=== PATIENT | male | born 1950 | race Caucasian/White ===

== ENCOUNTER 2018-02-09 20:57 | Inpatient (IN) | payer MEDICAID, SELFPAY ==
[2018-02-09 22:13] VITALS: BMI 27.1
[2018-02-09] MEDS ORDERED: Ondansetron HCl/PF 4 MG/2 ML Vial IVP PRN (22:16)
[2018-02-09 22:46] LABS: #Basophils 0.1 thou/uL (0.0-0.2); #Eosinphils 0.1 thou/uL (0.0-0.7); #Lymphocytes 2.1 thou/uL (1.20-3.40); #Monocytes 0.5 thou/uL (0.11-0.59); #Neutrophils 8.3 thou/uL (1.40-6.50); %Basophils 0.6 % (0.0-1.0); %Eosinophils 0.8 % (0.0-10.0); %Lymphocytes 18.9 % (21.0-51.0); %Monocytes 4.5 % (0.0-10.0); %Neutrophils 75.3 % (42.0-75.0); Hemoglobin 11.6 g/dL (14.0-18.0); Mean Corpuscular HGB CONC 33.6 g/dL (32.0-36.0); Mean Corpuscular Hemoglobin 34.8 pg (27.0-31.0); Mean Platelet Volume 7.2 fL (7.4-10.4); Platelet Count 180 thou/uL (130-400); RBC Distribution Width 13.3 % (11.5-14.5); Red Blood Cell (RBC) Count 3.34 mill/uL (4.70-6.10)
[2018-02-09 23:05] LABS: Anion Gap 13 mmol/L (10-20); BUN (Urea Nitrogen) 23 mg/dL (8.4-25.7); Calc. Creatinine Clearance 52 mL/min (70-130); Calcium 8.5 mg/dL (7.8-10.44); Carbon Dioxide 24 mmol/L (23-31); Chloride 103 mmol/L (98-107); Estimated GFR-MDRD 51; Glucose 100 mg/dL (80-115); Potassium 3.7 mmol/L (3.5-5.1); Sodium 136 mmol/L (136-145)
--- NOTE | 2018-02-10 00:13 | HP ---
TIME OF EVALUATION: 10:30 p.m. CODE STATUS: FULL code. PRIMARY CARE PHYSICIAN: The patient has recently moved to the area. The patient has been transferred from [facility] due to the need for evaluation by a urologist. The patient has Down syndrome, so information has been gathered from records, nursing staff, and transfer papers. CHIEF COMPLAINT: The patient had urinary retention. HISTORY OF PRESENT ILLNESS: This is a 67-year-old patient with past medical history of Down syndrome, recently moved to [place], after his brother who was taking care of him out of the state had a "massive heart attack" and has not been able to take care of him anymore. The patient had an episode of syncope 2 days ago, was taken to the ER in his local community, was examined. He was doing better, was sent back home. They did a CAT scan during that evaluation and found that the patient has urinary retention. He was admitted to [facility], where they tried to place a Reyes catheter to remove the obstruction, but it was not possible. For that reason, they have requested transfer to our hospital for the patient to have evaluation by Urology. The symptoms that he presented with is lower abdominal area severe pain. He is unable to exactly communicate his symptoms, but he continues to point to the lower abdomen, it is mildly distended. We are awaiting for the CT to be sent to us. There has been no fever, no chills, or any evidence of infection as of now. REVIEW OF SYSTEMS: Unable to obtain since the patient has mental retardation. ALLERGIES: No known drug allergies. HOME MEDICATIONS: Seroquel 25 mg at bedtime, omeprazole 20 mg daily, aspirin 81 mg daily, vitamin B12 1000 mcg one tablet daily, iron 27 one tablet daily, calcium 600 +D3 one tablet daily. SOCIAL HISTORY: Never a smoker. No alcohol, no drug use. Single, lives with family members. FAMILY HISTORY: Father has a history of arthritis. Mother has a history of cancer, history of seasonal allergies, arthritis, depression, Down syndrome. PAST SURGICAL HISTORY: None reported. PHYSICAL EXAMINATION: VITAL SIGNS: Reviewed. They are within normal limits. GENERAL APPEARANCE: The patient is alert. He is able to interact with simple questions. HEENT: Moist oral mucosa. RESPIRATORY: Bilateral air entry. No rales, no wheezing. Symmetric expansion. CARDIOVASCULAR: Normal rate and rhythm. No murmurs, no gallop, no edema. ABDOMEN: Soft. Normal bowel sounds. MUSCULOSKELETAL: Baseline range of motion and strength. No tenderness. SKIN: Warm and intact. No pallor, no rash, no redness. NEUROLOGIC: Baseline sensorium. No evidence of any new focal weakness. Baseline speech. Cranial nerves, sensory intact. PSYCHIATRIC: The patient is in good mood. LABORATORY DATA: Labs done prior to transfer: Sodium 142, potassium 4.4, chloride 107, CO2 of 24, anion gap 11, glucose 119, BUN 22, creatinine 1.2. BUN and creatinine 18/3. Calcium 9.6, total protein 6.5, albumin 3.4, total bilirubin 0.2, AST 25, ALT 17, alkaline phosphatase 111, GFR 64. White count 10.1, RBC 3.98, hemoglobin 13.2, hematocrit 39.9, platelets 232. CT head was done. The patient was found to have some ventricular dilation disproportionate to the level of atrophy seen and suspicious for normal pressure hydrocephalus. Age related and chronic involutional changes are seen. CT abdomen and pelvis without contrast was done. The patient has mild pericardial effusion. The urinary bladder is significantly filled, distended with mild thickening of the wall of the urinary bladder suspicious for cystitis. There is severe left-sided hydronephrosis without hydroureter. There is severe cortical thinning of the left kidney. These findings are suspicious for primary ureteropelvic junction obstruction of the left side. There is also presence of multiple peripelvic cysts in the right kidney. There is no right-sided hydroureteronephrosis. Fecal impaction in the rectosigmoid colon. Chest x-ray was done. There is no acute pleural parenchymal process seen in the imaged lung camargo. ASSESSMENT AND PLAN: 1. Bladder distention with urinary retention, likely secondary to enlarged prostate. Reyes has been attempted twice previously in the hospital, that has been unsuccessful. The patient has been transferred for urology evaluation of current problem. We will consult Urology. will follow recommendations. 2. Severe hydronephrosis on the left kidney without hydroureteronephrosis, likely due to obstruction of the ureteropelvic junction. Unclear if this is an acute vs likely a chronic problem since there is also thinning of the cortex of the left kidney, discussed with urology Dr Marisabel rosen paul see pt i nam , no further intervention to be done at this point. 3. Possible cystitis as seen on the CAT scan, likely related to urinary retention. We will do UA. We will treat accordingly. 4. Down syndrome with mental retardation. The patient will need supportive care as inpatient. 5. There was a report of syncope in previous admissions and this problem had resolved in the past. We will do echo and carotid Doppler to rule out any cardiac/carotid etiologies. . 6. Possible normal pressure hydrocephalus as seen on the CT head. Might need Neurology evaluation in a.m. for further management. 7. Hyperglycemia with a blood sugar of 119. This is mild. No need for any acute treatment. We will monitor. We will treat accordingly. 8. Deep venous thrombosis prophylaxis. MTDD
[2018-02-10] MEDS ORDERED: Tamsulosin HCl 0.4 MG CAP PO SCH (01:15)
[2018-02-10 04:55] LABS: Bilirubin Negative (Negative); Blood, Urine Negative (Negative); Clarity CLEAR (Clear); Glucose, Urine (Dipstick) Negative (Negative); Leukocyte Negative (Negative); Nitrite Negative (Negative); Protein, Urine (Dipstick) Negative (Neg-Trace); Specific Gravity, Urine 1.012 (1.002-1.036); Urobilinogen 0.2 mg/dL (0.2-1.0)
--- NOTE | 2018-02-10 07:52 | CON ---
DATE OF CONSULTATION: 02/10/2018 HISTORY OF PRESENT ILLNESS: This is a 67-year-old white male who has Down syndrome who was transferr ed here last night from [facility] because they could not place a Reyes catheter. He h ad come into that emergency department because of what sounds like a syncopal episode. They did eval uation there with blood work that looked pretty normal. A CAT scan of the head that showed some atro phy and some evidence of hydrocephalus, I do not know if this has been evaluated. He had an abdomina l pelvic CT scan, I read the report of that. It described a distended urinary bladder and that was t he reason they tried to place a Reyes catheter. It also described constipation/fecal impaction. I d o not think anything yet has been done to remedy that and it also showed what probably is a left UPJ obstruction ureter that was not dilated, renal collecting system that was significantly dilated with a severe left renal cortical atrophy. He was transferred here. The Hospitalist called me at home jacob storm 11:30 or 12 and at that point by what he describes to me, it did not sound like that we were goi ng to deal with a left UPJ obstruction as he was not septic and this would be a congenital problem th at at this point in time would not be worth fixing short of him becoming septic. I also recommended they try to place a Reyes catheter, if they were not able to, to call me. I never got called and cam e in to see him this morning. They have placed a 10-Urdu Reyes catheter. I talked with the nurses that were involved in helping to do it. They said the main problem was just that the urethral meatu s and phallus were small and they had to use a much smaller catheter, in addition that the patient, b ecause of his mental retardation from his Down syndrome was not cooperative. He has drained a very g ood amount of urine and a very clear urine. ALLERGIES: He has no known drug allergies. ROUTINE MEDICATIONS: Seroquel, omeprazole, aspirin, vitamins, iron and calcium. Apparently prior to moving to [facility] he had been taking 2 medicines to help him with urination as he does have a histor y of an enlarged prostate, but he is not on this currently. I think he was living with a family [facility] who suffered an illness and now he has come to [facility] and I guess he is being cared for by other family members. SOCIAL HISTORY: He does not smoke, does not drink. PAST SURGICAL HISTORY: There is nothing on his record about surgical history, although he does have a left-sided paramedian incision, I do not know if this is from a prior procedure or just from an inj ury. LABORATORY: He had blood work redone here. His white count is 11. His hemoglobin was 11.6. His cr eatinine is 1.39 and his urinalysis which I am assuming was obtained from the Reyes catheter is compl etely normal. VITAL SIGNS: His vital signs here, 99.0, normal O2 sat, pulse and blood pressure are normal. He is currently on his regular and routine medications and he has had Flomax started. PHYSICAL EXAMINATION: ABDOMEN: His flanks are nontender. His abdomen is slightly obese, but nontender, it is soft. There is no left-sided or left upper quadrant flank tenderness. Bladder does not feel distended. He has the old incision as above. : He is not circumcised. Catheter is in what appears to be good position, draining well. The jose ticles are descended. There is no mass or tenderness, they are somewhat atrophic and small and soft. RECTAL: Rectal exam reveals normal tone. I do not feel any obvious rectal lesion. Prostate does no t feel to be significantly enlarged or nodular. IMPRESSION: 1. Urinary retention of uncertain cause. Apparently a caregiver told the nursing staff that he does have a history of an enlarged prostate and he is on medicines for it. It looks like the Flomax has been restarted. I think that is a great idea and will also start him on some Proscar as he apparentl y was on 2 drugs for this. It is also possible that his difficulty with urination has come around re lated to fecal impaction/constipation and I think that it would be reasonable to try to get his bowel s working better as this can certainly cause problems in men and women in terms of causing incomplete emptying and retention. 2. Constipation/fecal impaction. 3. 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 He is not complaining of left flank pain or tenderness on ex am and where the kidney according to the report has significant cortical atrophy. I do think this ar ea should even be evaluated. We would assume that this is all UPJ obstruction, chronic long-term and that with a normal creatinine that is obvious his kidney is working adequately for him. So for the time being, we will get him back on his routine medications for lower urinary tract symptoms and then get working on his bowels to try to relieve any problems he has with constipation and hopefully in n ext couple of days, a voiding trial.
[2018-02-10] MEDS: Cyanocobalamin (Vitamin B-12) 1,000 MCG TAB PO SCH (08:55)
[2018-02-10] MEDS: Heparin 5,000 UNITS/ML VIAL SC SCH ×2 (08:56→22:06)
[2018-02-10] MEDS: Aspirin 81 mg Enteric Coated Tablet PO SCH (08:56)
[2018-02-10] MEDS: Loratadine 10 MG TAB PO SCH (08:56)
[2018-02-10] MEDS: Multivit, Therapeutic 1 TAB PO SCH (08:57)
[2018-02-10] MEDS: Calcium Carbonate + Vit D 1 TAB PO SCH (08:57)
--- NOTE | 2018-02-10 10:50 | ULT ---
BILATERAL CAROTID DUPLEX ULTRASOUND: DATE: 02/10/18 HISTORY: Syncope. TECHNIQUE: Vital scale ultrasound with color flow and spectral Doppler imaging of the extracranial carotid artery systems performed. FINDINGS: There is plaque formation on either side. The peak systolic velocity in the right ICA measures 75 cm/second with an end-diastolic velocity of 2 6 cm/second and a systolic ratio of 0.49. The peak systolic velocity in the left ICA measures 81 cm/second with an end-diastolic velocity of 22 cm/second and a systolic ratio of 0.59. Flow in both vertebral arteries remains antegrade. IMPRESSION: No evidence of hemodynamically significant stenosis in either ICA. POS: [facility]
--- NOTE | 2018-02-10 13:29 | PRG ---
DATE OF SERVICE: 02/10/2018 SUBJECTIVE: The patient seen and examined at the bedside. He is somewhat agitated after Dr. Petit gave him a rectal examination this morning. He is moaning. OBJECTIVE: VITAL SIGNS: Blood pressure is 102/70, pulse is 60, temperature is 98.2, respiratory rate is 16, and pulse oximetry is 95% on room air. HEENT: Head is atraumatic, normocephalic. Sclerae nonicteric. Oral mucosa is moist. NECK: Supple. LUNGS: Clear. HEART: S1, S2 normal, no S3, no S4, no any murmur. ABDOMEN: Soft, nontender in the epigastric area. There is some tenderness to the suprapubic area. No guarding, no masses. EXTREMITIES: No clubbing, cyanosis or edema. NEUROLOGIC: He is trying to follow my commands. He is able to move his all 4 extremities. He has a Reyes catheter in. LABORATORY DATA: Urinalysis which was within normal limits. IMPRESSION: 1. Urinary tract obstruction possibly secondary to his constipation and according to the CAT scan, h e is impacted. 2. Severe hydronephrosis on the left kidney without hydroureteronephrosis, which is felt to be chron ic. 3. Possible normal pressure hydrocephalus on the CT. We will obtain Neurology consultation to asses s that. 4. Possible cystitis which is per CT scan findings, but not confirm with urinalysis which is very cl ear. PLAN: Continue his Reyes catheter in. We will also start to move his bowels and I am going to start him on lactulose 20 grams 4 times a day. We will also continue his aspirin and he was placed on Jarrod max to help urinary tract function.
[2018-02-10] MEDS: traMADol HCl 50 MG TAB PO PRN (14:04)
[2018-02-10] MEDS: Tamsulosin HCl 0.4 MG CAP PO SCH (22:06)
[2018-02-10] MEDS: Finasteride 5 MG TAB PO SCH (22:06)
[2018-02-10] MEDS: Nitrofurantoin Monohyd/M-Cryst 100 MG CAP PO SCH (22:06)
[2018-02-11] MEDS ORDERED: Fleet Enema 133 ML BOT FS PRN (04:51)
[2018-02-11] MEDS ORDERED: Magnesium Citrate 300 ML BOT PO SCH (08:45)
[2018-02-11] MEDS ORDERED: Ziprasidone 20 MG VIAL IM PRN (08:49)
--- NOTE | 2018-02-11 08:57 | CON ---
DATE OF CONSULTATION: 02/10/2018 REFERRING PHYSICIAN: REASON FOR CONSULTATION: Urinary retention, possible NPH. HISTORY OF PRESENT ILLNESS: Mr. Melara is a 67-year-old male with history of Down syndrome who is being consulted for evaluation of urinary retention and possible NPH. History is very limite d as patient unable to provide. There is patient's brother being present in the room, who said that the brother normally takes care of him, is unavailable as he had a recent heart attack and he has no detailed history of his symptoms. Apparently, the patient had gone to outside emergency room for con tinued difficulty with urinary retention. He had syncopal episode for which he was taken to outside hospital. During the ER visit, he had a CT scan of the head done which apparently had shown enlarged ventricles and there was a concern for NPH. He was also found to have urinary retention, they targe t to perform catheter placement, but was unsuccessful and thus he was transferred over to [facility]. The patient's brother reported that he has been complaining of abdominal pain over the pas t 2 months and they have been told that his symptoms are due to his prostate problems for which he wa s started on medication; however, his sister had discontinued the medicine due to side effects and th ere has not been any complaint of balance issues. I am being asked to further evaluate for possible NPH based on the CT scan report. PAST MEDICAL HISTORY: PAST SURGICAL HISTORY: Reviewed and they are as dictated in H and P note done by Dr. Paul Osorio . FAMILY HISTORY: Reviewed and they are as dictated in H and P note done by Dr. Paul Osorio. SOCIAL HISTORY: Reviewed and they are as dictated in H and P note done by Dr. Paul Osorio. CURRENT MEDICATIONS: Reviewed and they are as dictated in H and P note done by Dr. Paul Osorio. ALLERGIES: Reviewed and they are as dictated in H and P note done by Dr. Paul Osorio. REVIEW OF SYSTEMS: Unable to perform. PHYSICAL EXAMINATION: VITAL SIGNS: Blood pressure of 102/70, pulse of 60, temperature of 98.2, respirations 16, O2 sats of 95% on room air. GENERAL: A well-developed, well-nourished male resting in bed, in no apparent distress. RESPIRATORY: Clear to auscultation bilaterally. CARDIOVASCULAR: Regular rate and rhythm. NEUROLOGIC: Mental status. The patient has a Down syndrome and has mild mental retardation. Crania l nerves: Pupils are 3 mm and reactive. Visual camargo are full to threat. Extraocular muscles are intact. Face is symmetric. Motor exam showed normal tone and bulk with 5/5 strength in both upper a nd lower extremities. Sensory: Sensation is intact and symmetric. LABORATORY DATA: Reviewed which included CBC, BMP, urinalysis, which is significant for hemoglobin 1 1.6, hematocrit 34.6, creatinine 1.39, otherwise unremarkable. IMPRESSION: Urinary retention. PLAN: Mr. Melara is a pleasant 67-year-old male with a history of Down syndrome who presen arleen with urinary retention, apparently he had a CT scan of the head done at outside facility, which h ad shown large ventricles and worrisome for possible NPH. Unfortunately, I am not able to review the imaging studies from outside hospital and I do not see the report in the chart either. In any case, his urinary retention is secondary to obstruction. He does not have tried of the normal pressure hy drocephalus. No further workup is not necessary at this time.
[2018-02-11] MEDS ORDERED: Sterile Water 10 ML VIAL FS SCH (09:00)
[2018-02-11] MEDS: Loratadine 10 MG TAB PO SCH (09:09)
[2018-02-11] MEDS: Cyanocobalamin (Vitamin B-12) 1,000 MCG TAB PO SCH (09:09)
[2018-02-11] MEDS: Heparin 5,000 UNITS/ML VIAL SC SCH ×2 (09:10→20:41)
[2018-02-11] MEDS: Calcium Carbonate + Vit D 1 TAB PO SCH (09:10)
[2018-02-11] MEDS: Aspirin 81 mg Enteric Coated Tablet PO SCH (09:10)
[2018-02-11] MEDS: Nitrofurantoin Monohyd/M-Cryst 100 MG CAP PO SCH ×2 (09:10→20:40)
[2018-02-11] MEDS: Multivit, Therapeutic 1 TAB PO SCH (09:10)
[2018-02-11 09:17] LABS: #Eosinphils 0.1 thou/uL (0.0-0.7); #Lymphocytes 1.8 thou/uL (1.20-3.40); #Monocytes 0.6 thou/uL (0.11-0.59); #Neutrophils 3.7 thou/uL (1.40-6.50); %Basophils 0.7 % (0.0-1.0); %Lymphocytes 28.8 % (21.0-51.0); %Neutrophils 60.5 % (42.0-75.0); Hemoglobin 11.8 g/dL (14.0-18.0); Mean Corpuscular HGB CONC 33.7 g/dL (32.0-36.0); Mean Corpuscular Hemoglobin 34.5 pg (27.0-31.0); Platelet Count 150 thou/uL (130-400); RBC Distribution Width 13.1 % (11.5-14.5); Red Blood Cell (RBC) Count 3.43 mill/uL (4.70-6.10); White Blood Cell (WBC) Count 6.2 thou/uL (4.8-10.8)
[2018-02-11 09:35] LABS: Anion Gap 11 mmol/L (10-20); BUN (Urea Nitrogen) 21 mg/dL (8.4-25.7); Calc. Creatinine Clearance 56 mL/min (70-130); Calcium 8.8 mg/dL (7.8-10.44); Carbon Dioxide 26 mmol/L (23-31); Chloride 108 mmol/L (98-107); Estimated GFR-MDRD 56; Glucose 93 mg/dL (80-115); Potassium 4.2 mmol/L (3.5-5.1); Sodium 141 mmol/L (136-145)
--- NOTE | 2018-02-11 11:49 | PRG ---
DATE OF SERVICE: 02/11/2018 SUBJECTIVE: The patient is resting, fidgeting with the catheter. Family at bedside. PHYSICAL EXAMINATION: VITAL SIGNS: Stable. He is afebrile. GENITOURINARY: Urine output 2300 mL. Urine output is clear. ABDOMEN: Soft, nontender, nondistended. Has not had a bowel movement. LABORATORY DATA: White count 6, hemoglobin 11.8, platelet 150, creatinine is 1.2. UA is negative. IMPRESSION AND PLAN: Mr. Melara is a 67-year-old male with history of urinary retention, Downs, tariq re constipation. Per family and nursing staff, he has not had a bowel movement for 30 days. It appe ared that the patient's family is declining enemas. I informed them that there would be efficacious to proceed to do so. If persistent constipation of concern, GI consult may be indicated for fecal di simpaction. Continue indwelling Reyes catheter, as fecal impaction can exacerbate urinary retention.
[2018-02-11] MEDS: traMADol HCl 50 MG TAB PO PRN (12:08)
[2018-02-11] MEDS ORDERED: Ondansetron ODT 4 MG TAB PO PRN (15:13)
--- NOTE | 2018-02-11 15:33 | PDOC.PN ---
- Subjective Encounter Start Date: 02/11/18 Encounter Start Time: 10:20 Pt seen for followup re: constipation. Pt is lethargic, unable to complete ROS. - Objective Resuscitation Status: Resuscitation Status FULL:Full Resuscitation MAR Reviewed: Yes Vital Signs & Weight: Vital Signs (12 hours) Temp Pulse Resp BP Pulse Ox 02/11/18 08:00 97.8 F 64 18 97/66 94 L Weight Weight 153 lb 9.6 oz I&O: 02/10/18 02/11/18 02/12/18 06:59 06:59 06:59 Intake Total 600 Output Total 1050 2300 Balance -1050 -1700 Result Diagrams: 02/11/18 09:08 02/11/18 09:08 Additional Labs: Labs reviewed by me Phys Exam - Physical Examination Constitutional: NAD HEENT: moist MMs Neck: supple Respiratory: clear to auscultation bilateral Cardiovascular: RRR Gastrointestinal: soft Neurological: moves all 4 limbs Deviation from normal: Unable to assess mood, affect or orientation to person, place or time Dx/Plan (1) Constipation Code(s): K59.00 - CONSTIPATION, UNSPECIFIED Status: Acute Comment: Trial magnesium citrate (2) Urinary retention Code(s): R33.9 - RETENTION OF URINE, UNSPECIFIED Status: Acute Comment: urology service wants to try voiding trial on Tuesday.They also want bowel movements to regularize prior to the voiding trial. (3) Down syndrome Code(s): Q90.9 - DOWN SYNDROME, UNSPECIFIED Status: Chronic (4) Mental retardation Code(s): F79 - UNSPECIFIED INTELLECTUAL DISABILITIES Status: Chronic - Plan * . Review of Systems - Medications/Allergies Allergies/Adverse Reactions: Allergies Allergy/AdvReac Type Severity Reaction Status Date / Time No Known Allergies Allergy Unverified 02/09/18 22:27 Medications: Current Medications Acetaminophen (Tylenol) 650 mg PO Q4H PRN PRN Reason: Headache/Fever or Pain Aspirin (Ecotrin) 81 mg PO DAILY [facility] Last Admin: 02/11/18 09:10 Dose: 81 mg Calcium/Vitamin D (Caltrate 600 + Vit D) 1 tab PO DAILY [facility] Last Admin: 02/11/18 09:10 Dose: 1 tab Cyanocobalamin (Vitamin B-12) 1,000 mcg PO DAILY [facility] Last Admin: 06/23/18 09:09 Dose: 1,000 mcg Ferrous Sulfate (Ferrous Sulfulte) 135 mg PO DAILY [facility] Last Admin: 02/11/18 09:10 Dose: 135 mg Finasteride (Proscar) 5 mg PO HS [facility] Last Admin: 02/10/18 22:06 Dose: 5 mg Heparin Sodium (Porcine) (Heparin) 5,000 units SC BID [facility] Last Admin: 02/11/18 09:10 Dose: 5,000 units Lactulose (Lactulose) 20 gm PO QID [facility] Last Admin: 02/11/18 12:09 Dose: 20 gm Loratadine (Claritin) 10 mg PO DAILY [facility] Last Admin: 02/11/18 09:09 Dose: 10 mg Multivitamins (Theragran) 1 tab PO DAILY [facility] Last Admin: 02/11/18 09:10 Dose: 1 tab Nitrofurantoin Macrocrystals (Macrobid) 100 mg PO BID [facility] Last Admin: 02/11/18 09:10 Dose: 100 mg Ondansetron HCl (Zofran Odt) 4 mg PO Q6H PRN PRN Reason: Nausea/Vomiting Pantoprazole Sodium (Protonix) 40 mg PO DAILY [facility] Last Admin: 02/11/18 09:10 Dose: 40 mg Quetiapine Fumarate (Seroquel) 100 mg PO [facility] Last Admin: 02/10/18 22:06 Dose: 100 mg Sodium Biphosphate/Sodium Phosphate (Fleet Enema) 133 ml FS ONE PRN PRN Reason: CONSTIPATION Stop: 02/12/18 04:52 Sodium Chloride (Flush - Normal Saline) 10 ml IVF Q12HR [facility] Last Admin: 02/11/18 09:14 Dose: Not Given Sodium Chloride (Flush - Normal Saline) 10 ml IVF PRN PRN PRN Reason: Saline Flush Sterile Water (Water For Injection) 2 ml FS ASDIR [facility] Tamsulosin HCl (Flomax) 0.4 mg PO HS [facility] Last Admin: 02/10/18 22:06 Dose: 0.4 mg Tramadol HCl (Ultram) 50 mg PO Q6H PRN PRN Reason: Moderate Pain (4-6) Last Admin: 02/11/18 12:08 Dose: 50 mg Ziprasidone (Geodon) 10 mg IM Q8H PRN PRN Reason: Agitation
[2018-02-11] MEDS: Finasteride 5 MG TAB PO SCH (20:40)
[2018-02-11] MEDS: Tamsulosin HCl 0.4 MG CAP PO SCH (20:40)
[2018-02-11] MEDS: Acetaminophen 325 MG TAB PO PRN (22:09)
[2018-02-11] MEDS: Zolpidem Tartrate 5 MG TAB PO PRN (22:09)
[2018-02-12] MEDS: Heparin 5,000 UNITS/ML VIAL SC SCH ×2 (08:49→20:21)
[2018-02-12] MEDS: Nitrofurantoin Monohyd/M-Cryst 100 MG CAP PO SCH ×2 (08:49→20:22)
[2018-02-12] MEDS: Calcium Carbonate + Vit D 1 TAB PO SCH (08:49)
[2018-02-12] MEDS: Loratadine 10 MG TAB PO SCH (08:49)
[2018-02-12] MEDS: Aspirin 81 mg Enteric Coated Tablet PO SCH (08:49)
[2018-02-12] MEDS: Cyanocobalamin (Vitamin B-12) 1,000 MCG TAB PO SCH (08:49)
[2018-02-12] MEDS: Multivit, Therapeutic 1 TAB PO SCH (08:49)
[2018-02-12] MEDS: traMADol HCl 50 MG TAB PO PRN (12:21)
--- NOTE | 2018-02-12 12:43 | PRG ---
DATE OF SERVICE: 02/12/2018 SUBJECTIVE: The patient is sitting up family at bedside. OBJECTIVE: VITAL SIGNS: Stable. The patient has multiple bowel movements. ABDOMEN: Soft, nontender, nondistended. GENITOURINARY: Reyes catheter secured with clear yellow urine. IMPRESSION AND PLAN: Mr. Melara is a 67-year-old male with Down syndrome with severe constipation wi th urologic issues of urinary retention. Family at bedside. Recommend Reyes catheter to be removed tomorrow morning for a voiding trial as he has had multiple bowel movements. He will need to be miroslava tored after Reyes catheter removal to ensure he is voiding adequately. Dr. Petit to resume care blu orrow morning.
[2018-02-12] MEDS: traMADol HCl 50 MG TAB PO SCH ×2 (15:29→20:22)
[2018-02-12] MEDS: Tamsulosin HCl 0.4 MG CAP PO SCH (20:22)
[2018-02-12] MEDS: Finasteride 5 MG TAB PO SCH (20:22)
[2018-02-12] MEDS: Zolpidem Tartrate 5 MG TAB PO PRN (23:12)
[2018-02-12] MEDS: Acetaminophen 325 MG TAB PO PRN (23:12)
--- NOTE | 2018-02-12 23:39 | PDOC.PN ---
- Subjective Encounter Start Date: 02/12/18 Encounter Start Time: 11:30 Patient seen and examined for urinary retention. No new complaints. Had several BMs after Mag citrate. No overnight events - Objective Resuscitation Status: Resuscitation Status FULL:Full Resuscitation MAR Reviewed: Yes Vital Signs & Weight: Vital Signs (12 hours) Temp Pulse Resp BP Pulse Ox 02/12/18 20:00 97.8 F 73 16 02/12/18 17:00 97.8 F 73 16 139/81 93 L Weight Weight 153 lb 9.6 oz I&O: 02/11/18 02/12/18 02/13/18 06:59 06:59 06:59 Intake Total 600 890 480 Output Total 2300 2550 2600 Balance -1700 -1660 -2120 Result Diagrams: 02/11/18 09:08 02/11/18 09:08 Additional Labs: Accuchecks 02/12/18 04:26 POC Glucose 90 Radiology Reviewed by me: No (Echo - normal EF) Phys Exam - Physical Examination Constitutional: NAD Respiratory: no wheezing, no rhonchi Cardiovascular: RRR, no rub Gastrointestinal: soft, non-tender, positive bowel sounds Musculoskeletal: no edema Neurological: moves all 4 limbs Dx/Plan (1) Urinary retention Code(s): R33.9 - RETENTION OF URINE, UNSPECIFIED Status: Acute Comment: s/p tong (2) Cystitis Code(s): N30.90 - CYSTITIS, UNSPECIFIED WITHOUT HEMATURIA Status: Acute (3) Constipation Code(s): K59.00 - CONSTIPATION, UNSPECIFIED Status: Acute Comment: improving (4) Down syndrome Code(s): Q90.9 - DOWN SYNDROME, UNSPECIFIED Status: Chronic (5) Mental retardation Code(s): F79 - UNSPECIFIED INTELLECTUAL DISABILITIES Status: Chronic (6) NPH (normal pressure hydrocephalus) Code(s): G91.2 - (IDIOPATHIC) NORMAL PRESSURE HYDROCEPHALUS Status: Chronic Comment: found on CT at outside facility - Outpt followup (7) H/O syncope Code(s): Z87.898 - PERSONAL HISTORY OF OTHER SPECIFIED CONDITIONS Status: Acute - Plan continue antibiotics, DVT proph w/SCDs DC tong in AM for voiding trial -: Cont Flomax/Finasteride -: Cont Macrobid, Add Miralax -: Cont current home meds as below -: Add scheduled Tramadol per family's request Review of Systems - Review of Systems Respiratory: negative: Cough, Dry, Shortness of Breath, Hemoptysis, SOB with Excertion, Pleuritic Pain, Sputum, Wheezing Cardiovascular: negative: chest pain, palpitations, orthopnea, paroxysmal nocturnal dyspnea, edema, light headedness, other - Medications/Allergies Allergies/Adverse Reactions: Allergies Allergy/AdvReac Type Severity Reaction Status Date / Time No Known Allergies Allergy Unverified 02/09/18 22:27 Medications: Current Medications Acetaminophen (Tylenol) 650 mg PO Q4H PRN PRN Reason: Headache/Fever or Pain Last Admin: 02/12/18 23:12 Dose: 650 mg Aspirin (Ecotrin) 81 mg PO DAILY [facility] Last Admin: 02/12/18 08:49 Dose: 81 mg Calcium/Vitamin D (Caltrate 600 + Vit D) 1 tab PO DAILY [facility] Last Admin: 02/12/18 08:49 Dose: 1 tab Cyanocobalamin (Vitamin B-12) 1,000 mcg PO DAILY [facility] Last Admin: 02/12/18 08:49 Dose: 1,000 mcg Ferrous Sulfate (Ferrous Sulfulte) 135 mg PO DAILY [facility] Last Admin: 02/12/18 08:50 Dose: 135 mg Finasteride (Proscar) 5 mg PO HS [facility] Last Admin: 02/12/18 20:22 Dose: 5 mg Heparin Sodium (Porcine) (Heparin) 5,000 units SC BID [facility] Last Admin: 02/12/18 20:21 Dose: 5,000 units Loratadine (Claritin) 10 mg PO DAILY [facility] Last Admin: 02/12/18 08:49 Dose: 10 mg Multivitamins (Theragran) 1 tab PO DAILY [facility] Last Admin: 02/12/18 08:49 Dose: 1 tab Nitrofurantoin Macrocrystals (Macrobid) 100 mg PO BID [facility] Last Admin: 02/12/18 20:22 Dose: 100 mg Ondansetron HCl (Zofran Odt) 4 mg PO Q6H PRN PRN Reason: Nausea/Vomiting Pantoprazole Sodium (Protonix) 40 mg PO DAILY [facility] Last Admin: 02/12/18 08:49 Dose: 40 mg Polyethylene Glycol (Miralax) 17 gm PO DAILY [facility] Quetiapine Fumarate (Seroquel) 100 mg PO HS [facility] Last Admin: 02/12/18 20:22 Dose: 100 mg Sodium Chloride (Flush - Normal Saline) 10 ml IVF Q12HR BEATRIZ Last Admin: 02/12/18 20:19 Dose: Not Given Sodium Chloride (Flush - Normal Saline) 10 ml IVF PRN PRN PRN Reason: Saline Flush Sterile Water (Water For Injection) 2 ml FS ASDIR BEATRIZ Tamsulosin HCl (Flomax) 0.4 mg PO HS [facility] Last Admin: 02/12/18 20:22 Dose: 0.4 mg Tramadol HCl (Ultram) 50 mg PO Q6H PRN PRN Reason: Moderate Pain (4-6) Last Admin: 02/12/18 12:21 Dose: 50 mg Tramadol HCl (Ultram) 50 mg PO TID [facility] Last Admin: 02/12/18 20:22 Dose: 50 mg Ziprasidone (Geodon) 10 mg IM Q8H PRN PRN Reason: Agitation Zolpidem Tartrate (Ambien) 5 mg PO HS PRN PRN Reason: Insomnia Last Admin: 02/12/18 23:12 Dose: 5 mg
[2018-02-13 07:48] VITALS: TEMP 98.1
[2018-02-13] MEDS: Aspirin 81 mg Enteric Coated Tablet PO SCH (08:05)
[2018-02-13] MEDS: Calcium Carbonate + Vit D 1 TAB PO SCH (08:05)
[2018-02-13] MEDS: Cyanocobalamin (Vitamin B-12) 1,000 MCG TAB PO SCH (08:05)
[2018-02-13] MEDS: Multivit, Therapeutic 1 TAB PO SCH (08:05)
[2018-02-13] MEDS: Nitrofurantoin Monohyd/M-Cryst 100 MG CAP PO SCH (08:05)
[2018-02-13] MEDS: traMADol HCl 50 MG TAB PO SCH ×2 (08:05→15:46)
[2018-02-13] MEDS: Heparin 5,000 UNITS/ML VIAL SC SCH (08:08)
[2018-02-13] MEDS: Loratadine 10 MG TAB PO SCH (08:08)
[2018-02-13] MEDS ORDERED: Polyethylene Glycol 3350 17 GM Packet PO SCH (09:00)
[2018-02-13 11:19] VITALS: BP 100/68
== END 2018-02-13 16:56 | disposition home or self-care (01) | DRG 694 ==
LOC: T4-B 21:23
PROVIDERS: ADMIT Hospitalist; ATTEND Hospitalist
DX: N13.0 Hydronephrosis with ureteropelvic junction obstruction (principal); R33.9 Retention of urine, unspecified; N40.1 Benign prostatic hyperplasia with lower urinary tract symptoms; Q90.9 Down syndrome, unspecified; F79 Unspecified intellectual disabilities; B96.89 Other specified bacterial agents as the cause of diseases classified elsewhere; R73.9 Hyperglycemia, unspecified; K59.00 Constipation, unspecified; Z87.898 Personal history of other specified conditions
CPT/HCPCS: 36415; 36416; 80048; 81003; 85025; 93306; 93880; A4216; J1644; J2405

== ENCOUNTER 2019-05-18 04:35 | Inpatient (IN) | payer MEDICARE, MEDICAID ==
[2019-05-18 05:51] LABS: INR-International Normal Ratio 1.5; Prothrombin Time 18.4 SEC (12.0-14.7)
[2019-05-18 05:52] LABS: PTT 31.9 SEC (22.9-36.1)
[2019-05-18 06:02] LABS: #Lymphocytes 1.9 thou/uL (1.20-3.40); #Monocytes 0.9 thou/uL (0.11-0.59); %Basophils 0.3 % (0.0-1.0); %Eosinophils 0.2 % (0.0-10.0); %Lymphocytes 12.2 % (21.0-51.0); %Monocytes 5.8 % (0.0-10.0); %Neutrophils 81.6 % (42.0-75.0); Hemoglobin 5.8 g/dL (14.0-18.0); Mean Corpuscular HGB CONC 33.8 g/dL (32.0-36.0); Mean Corpuscular Hemoglobin 32.6 pg (27.0-31.0); Mean Corpuscular Volume 96.5 fL (78.0-98.0); Mean Platelet Volume 7.6 fL (7.4-10.4); Platelet Count 167 thou/uL (130-400); RBC Distribution Width 15.1 % (11.5-14.5); Red Blood Cell (RBC) Count 1.77 mill/uL (4.70-6.10)
[2019-05-18 06:06] LABS: ALT (SGPT) 16 U/L (8-55); AST (SGOT) 15 U/L (5-34); Albumin 1.9 g/dL (3.4-4.8); Alkaline Phosphatase 50 U/L (40-110); Anion Gap 7 mmol/L (10-20); BUN (Urea Nitrogen) 55 mg/dL (8.4-25.7); Bilirubin, Total 0.2 mg/dL (0.2-1.2); Calc. Creatinine Clearance 0 mL/min (70-130); Calcium 6.2 mg/dL (7.8-10.44); Carbon Dioxide 17 mmol/L (23-31); Chloride 124 mmol/L (98-107); Estimated GFR-MDRD 58; Globulin 1.7 g/dL (2.4-3.5); Glucose 119 mg/dL (80-115); Potassium 3.4 mmol/L (3.5-5.1); Protein, Total 3.6 g/dL (5.8-8.1); Sodium 145 mmol/L (136-145)
[2019-05-18] MEDS ORDERED: Piperacillin/Tazobactam 4.5 GM VIAL ONE (06:15)
[2019-05-18] MEDS ORDERED: Pantoprazole 80 MG in Sodium Chloride 0.9% 100 ML IVP SCH (07:30)
[2019-05-18] MEDS ORDERED: Tranexamic Acid 1,000 MG in Sodium Chloride 0.9% 250 ML 250 ML IVPB SCH (07:30)
[2019-05-18] MEDS ORDERED: Pantoprazole 40 MG VIAL ONE (07:32)
[2019-05-18] MEDS ORDERED: Tranexamic Acid 1,000 MG/10 ML VIAL ONE (07:32)
--- NOTE | 2019-05-18 08:05 | RAD ---
CHEST 1 VIEW: INDICATION: History of anemia and lower GI bleed. COMPARISON: None. FINDINGS: There is bibasilar airspace opacity which is nonspecific and can be seen with aspiration or pneumonia . This is superimposed on some mild COPD change. Heart size is mildly prominent. No pleural effusi on or pneumothorax is evident. No acute osseous abnormality is noted. IMPRESSION: Bibasilar airspace opacity is nonspecific and may reflect aspiration or pneumonia. POS: BH
[2019-05-18] MEDS ORDERED: Acetaminophen 325 MG Suppository ONE (08:20)
--- NOTE | 2019-05-18 08:52 | CT ---
CT OF THE ABDOMEN AND PELVIS WITH IV CONTRAST: INDICATION: History of transfer from an outside facility for lower GI bleeding and anemia. COMPARISON: None. FINDINGS: There is airspace opacity within the right lower lobe suspicious for aspiration or pneumonia. There are small bilateral pleural effusions. There is mild left basilar atelectasis. The gallbladder is surgically absent. No focal hepatic lesion is evident. The visualized pancreas is unremarkable-appearing. The left kidney is severely atrophic and demonstrates some prominent cortical thinning and prominent renal pelvis dilatation and caliectasis suspicious for chronic UVJ obstruction. The left ureter is n ormal in caliber. There are multiple right-sided peripelvic cysts. The right kidney is normal-appea ring. Adrenal glands and spleen appear within normal limits. A small calcified granuloma is seen wi thin the spleen. No enlarged lymph nodes are evident. No drainable fluid collection is evident. There is wall thickening and distention of the rectum with stool. There is a moderate amount of lissy ined stool within the colon itself. The appendix is not definitely identified. There is asymmetric wall thickening involving the posterolateral aspect of the bladder. The bladder is moderately distended. There is scattered degenerative and osteoarthritic change. There is grade I anterolisthesis of L5 on S1. No acute osseous abnormality is evident. IMPRESSION: 1. Airspace opacity of the right lower lobe suspicious for aspiration or pneumonia. 2. Small bilateral pleural effusions. 3. Severely atrophic left kidney with prominent pelvocaliectasis likely related to chronic ureterope lvic junction obstruction. 4. Multiple right-sided peripelvic cysts. 5. Moderate retained retention of stool within the colon. There is moderate retention of stool with in the rectum. The rectum is diffusely thickened suspicious for a component of a proctitis. 6. Asymmetric wall thickening in the bladder may reflect sequelae of chronic bladder outlet obstruct ion; however, a component of cystitis or potentially even an asymmetric malignancy of the bladder can not be totally excluded. Recommend correlation with urinary laboratories and consideration for possi ble cystoscopy. POS: NELLY
[2019-05-18] MEDS ORDERED: Lorazepam 2 MG/ML VIAL SLOW IVP PRN (09:03)
[2019-05-18] MEDS ORDERED: EPINEPHrine 1 MG/10 ML Abboject SYRINGE ONE ×2 (09:38→16:59)
[2019-05-18] MEDS ORDERED: PROPOFOL 200 MG/20 ML VIAL ONE (09:38)
[2019-05-18] MEDS ORDERED: ePHEDrine 50 MG/ML VIAL ONE (09:38)
[2019-05-18 09:47] LABS: Bacteria/HPF 3+ HPF (None Seen); Bilirubin Negative (Negative); Blood, Urine Negative (Negative); Clarity Clear (Clear); Glucose, Urine (Dipstick) Normal (Negative); Leukocyte 250 Leu/uL (Negative); Nitrite Negative (Negative); Protein, Urine (Dipstick) 20 mg/dL (Neg-Trace); RBC/HPF 0-3 HPF (0-3); Squamous Epithelial None Seen HPF (0-3)
[2019-05-18 09:53] LABS: Hemoglobin 7.9 g/dL (14.0-18.0)
[2019-05-18 10:03] LABS: Lactic Acid 1.5 mmol/L (0.5-2.2)
[2019-05-18] MEDS ORDERED: ISOVUE-370 76%-LOCM 1 ML ONE (11:52)
[2019-05-18] MEDS: Piperacillin/Tazobactam 3.375 GM in Sodium Chloride 0.9% 100 ML IVPB SCH ×4 (12:00→23:27)
--- NOTE | 2019-05-18 15:12 | HP ---
CHIEF COMPLAINT: GI bleed. HISTORY OF PRESENT ILLNESS: This patient is a 68-year-old male with Down syndrome, who is in a residential facility in [place]. He has had some challenges in maintaining his weight and nutrition there. The patient apparently was noted to be pale by his niece, who is his medical power of digital performance analyst. After reporting that to the facility, labs were obtained, which revealed a hemoglobin of 6.8. They also informed the niece that the patient had been passing some black stools as well. He was sent to the emergency department locally where he had a hemoglobin of 7. He received a unit of blood. His pressures were 80 systolic. He subsequently was transferred to this facility, where repeat labs have showed worsening anemia. He is now receiving his third unit of blood. The patient himself is unfortunately able to give substantial amount of history due to his Down syndrome. REVIEW OF SYSTEMS: Unobtainable due to the patient's mental status. PAST MEDICAL HISTORY: Notable for some BPH with urinary retention, possibly exacerbated by some stool impaction with the previous admission here in 2018. He has BPH. He requires intermittent cath, although that is fairly subjective decision as the patient is uncomfortable with those and sometimes will void fair amount on his own. He has a gastroesophageal reflux, osteoarthritis. PAST SURGICAL HISTORY: Some type of surgical history in infancy. The family does not know what that was. History of glaucoma surgery and some type of surgery on his foot. FAMILY HISTORY: He had a brother with prostate cancer, hypertension, diabetes, and colon cancer. SOCIAL HISTORY: Nonsmoker. Nondrinker. Nondrug user. Not . 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 The only restriction is against intubation. His medical power of digital performance analyst and surrogate decision maker is a niece, Mili Lee and brother, Melquiades Melara. ALLERGIES: NONE. CURRENT MEDICATIONS: Include; 1. Finasteride 5 mg one p.o. at bedtime. 2. Keflex one p.o. t.i.d. 3. Ibuprofen. 4. Aspirin 81 mg daily. 5. Docusate. 6. Cetirizine. 7. Calcium with vitamin D. 8. Multivitamin. 9. Tamsulosin 0.4 mg daily. 10. Omeprazole 20 mg daily. 11. Seroquel 300 mg p.o. at bedtime. 12. MiraLAX p.r.n. 13. Tramadol p.r.n. 14. Acetaminophen p.r.n. 15. Guaifenesin p.r.n. 16. Mylanta p.r.n. PHYSICAL EXAMINATION: VITAL SIGNS: Blood pressure is 96/43, pulse 86, respirations 23, and O2 saturations 96% on 3 L. GENERAL APPEARANCE: Age-appropriate male, with Down syndrome. He is awake and will make some eye contact, but is otherwise not significantly interactive. He appears to be somewhat uncomfortable. HEENT: Pupils are reactive. He has no OP lesions. He is edentulous. NECK: Supple and symmetric. HEART: Regular without murmurs, gallops, or rubs. LUNGS: Clear to auscultation bilaterally. Good chest wall expansion and air exchange. ABDOMEN: Slightly tender, difficult to localize, but appears to be more epigastric and possibly right upper quadrant. There appears to be some fullness in the right upper quadrant, although a definitive liver edge is not palpable. EXTREMITIES: No cyanosis, clubbing, or edema. LABORATORY DATA: White count 16.0, hemoglobin 5.8, and platelets 167. Sodium 145, potassium 3.4, chloride 124, CO2 is 17, BUN 55, creatinine 1.25, and glucose 119. PT is 18.4. Calcium 6.2, AST 15, ALT 16, total bilirubin 0.2, and albumin is 1.9. IMAGING DATA: Chest x-ray shows some bibasilar airspace opacity. CT abdomen and pelvis is pending. IMPRESSION AND PLAN: 1. Acute gastrointestinal bleed. The patient is on a Protonix drip and GI has been consulted with anticipation of endoscopy. He has received tranexamic acid in the emergency department, appears to be upper in nature given the black stools. 2. Acute blood loss anemia secondary to gastrointestinal bleed. The patient is receiving his 3rd unit of blood. We will continue to monitor serial H and H. 3. Mild hypovolemic shock given the patient's hypotension, appears to be at least stabilized presently, although his blood pressures are still on the low side. It is unclear what his baseline is. 4. Down's syndrome. 5. Urinary retention. The patient's CT scan does appear to show distended bladder yet again. We will go ahead and get a Reyes catheter placed and leave it in. 6. Possible constipation. He appears to have some proctitis and slightly distended rectum. We will address that once he is more stabilized. 7. Possible aspiration pneumonitis based on x-ray and CT scan. He has received vancomycin and Zosyn in the emergency department. We will continue with the Zosyn. 8. Chronic kidney disease, stage 3 based on his previous labs. He appears to be in his baseline renal function. 9. History of benign prostatic hyperplasia contributing to his urinary retention given that we will place the Reyes catheter and his blood pressures are borderline. We will avoid adding the tamsulosin back at this time. Job ID: [id number] MTDD
[2019-05-18] MEDS: Sodium Chloride 0.45% 1,000 ML IV SCH (16:15)
--- NOTE | 2019-05-18 16:15 | CON ---
DATE OF CONSULTATION: 05/18/2019 REASON FOR CONSULTATION: Critical care. This consult encompassed 75 minutes of time, of that time, greater than 50% was spent with the patient and/or the patient's unit in the hospital. HISTORY OF PRESENT ILLNESS: The patient is a 68-year-old who was transported from his home in [place] for evaluation of GI bleeding. He has been having black tarry stools and maroon-colored stools. He was found to be profoundly anemic. He is scheduled for endoscopy later today. PAST MEDICAL HISTORY: 1. Down syndrome. 2. Gastroesophageal reflux. 3. Prostatic hypertrophy. 4. Urinary retention. 5. Glaucoma. PAST SURGICAL HISTORY: He has had some type of abdominal surgery as an . He has also had eye surgery. SOCIAL HISTORY: Nonsmoker. Does not consume alcohol. Does not use illicit drugs. HOME MEDICATIONS: 1. Tramadol. 2. Flomax. 3. Seroquel. 4. MiraLAX. 5. Nitrofurantoin. 6. Multivitamin. 7. Finasteride. 8. Vitamin B12. 9. Zyrtec. 10. Calcium. 11. Aspirin. None of those were confirmed. ALLERGIES: NONE. PHYSICAL EXAMINATION: VITAL SIGNS: Heart rate 74, blood pressure 127/50, and O2 saturation 98%. GENERAL: The patient is currently sleeping, appears in no distress. HEENT: Remarkable for enlarged tongue. NECK: No adenopathy or JVD. LUNGS: Clear. CARDIAC: S1 and S2. Regular. ABDOMEN: Soft. EXTREMITIES: No edema. LABORATORY DATA: Hemoglobin 7.9, hematocrit 23.0. INR 1.5. Sodium 145, potassium 3.4, chloride 124, CO2 of 17, BUN 55, creatinine 1.3, and glucose 119. IMAGING DATA: Chest x-ray shows no mass, effusion, or infiltrate. Abdominal CT scan shows some infiltrative changes in the right base. Atrophic left kidney. ASSESSMENT: 1. Gastrointestinal bleeding. 2. Anemia due to blood loss. 3. Question of aspiration pneumonitis. PLAN: 1. Agree with plans for endoscopy, empiric antibiotics, and serial hemoglobin and hematocrit. 2. The patient will be put on SCDs for DVT prophylaxis and Protonix for GI prophylaxis. 3. Probably, would benefit from some IV fluids. Job ID: [id number]
--- NOTE | 2019-05-18 18:31 | CON ---
DATE OF CONSULTATION: 05/18/2019 REASON FOR CONSULTATION: Anemia, hypotension, and history of black tarry stool. HISTORY OF PRESENT ILLNESS: This is a 68-year-old male with Down syndrome, who lives in an assisted care facility. Apparently, he was sent to the ER last time because of black tarry stools and anemia. In the ER, his blood count was around 7.8, and he was given 1 unit of packed RBCs. He was having black tarry stool and was sent here for further care. The patient has Down syndrome and really noncommunicative. Most of the history was obtained from talking to his niece, who is power of traffic law attorney and also who had previous admission in 2018. The patient was hospitalized in January of 2018 because of urinary retention and was seen by Dr. Sp Petit. At that time, he was found to have left-sided hydronephrosis and also has had some . He was found to have prostatic hypertrophy and was started on finasteride and also tamsulosin. Subsequently, he was sent home. He has done well since discharge from this hospital in January of 2019. The long term people noticed that he is having some black tarry stools in the last 3 days abdominal pain. No nausea. No vomiting. In the ER, he has had 2 to 3 black tarry stool. When he came to the ER, he was hypotensive with systolic blood pressure 80. He had a CBC done and found to have a further drop in blood count to 5.8. He has been transfused 1 unit and in the ER, his blood pressure was around 119/69 and pulse rate is 85. He appears comfortable and does not appear to be in any distress. There is no prior history of any peptic ulcer disease or GI bleeding. The patient had no abdominal pain, no nausea or vomiting. However, because of limited capability to express it is very difficult to get any history. However, he appears very comfortable. The patient had no relevant symptoms. ALLERGIES: NONE. MEDICAL ILLNESSES: 1. Down syndrome. 2. Admission for urinary retention in January 2018 and had difficulty putting a catheter in. He was found to have left-sided hydronephrosis and possible obstruction in the ureteropelvic junction. He was seen by Dr. Sp Petit. 3. Prostatic hypertrophy, diagnosed in 2018 and was placed on medication. He has been urinating very well without any problem. PAST SURGICAL HISTORY: He has had surgery in childhood and scar over the abdomen and also he has right lower quadrant scar from possibly appendectomy. FAMILY HISTORY: . REVIEW OF SYSTEMS: Unobtainable because of his inability to communicate. MEDICATIONS: List reviewed. PHYSICAL EXAMINATION: GENERAL: He is awake and in no distress. VITAL SIGNS: Pretty stable. Pulse rate 85, blood pressure 119/69. HEENT: Conjunctivae are clear. NECK: Supple. No adenitis or thyromegaly noted. CARDIOVASCULAR SYSTEM: First and second heart sounds heard. LUNGS: Clear to auscultation. ABDOMEN: Mildly distended. He has a midline scar over the abdomen. He also has a right lower quadrant scar. Abdomen is tender over the epigastric area. There is no rebound or guarding. No organomegaly or masses. EXTREMITIES: Reveal no edema. LABORATORY DATA: From today WBC 16,000, hemoglobin 5.8, hematocrit 17.1, MCV 96.5, platelet count 167,000, polymorphs 81, lymphocytes 12. Repeat H and H this morning, hemoglobin up to 7.9, hematocrit 23. Chemistry panel; BUN is 55, mostly from GI bleeding. Lytes are normal. Glucose 119, calcium 6.2, bilirubin 0.2, AST 15, ALT 16, alkaline phosphatase 50, albumin is 1.9, prealbumin . CLINICAL IMPRESSION: 1. A 68-year-old male with Down syndrome, presents with anemia and history of black tarry stool over the last 3 days. He was hypotensive on arrival, but with blood transfusion, blood pressure is coming up. No prior history of peptic ulcer. He has had some surgery in childhood and there is a scar over the epigastric area. The nature of the surgery is unclear at the present time. He has no prior history of any GI bleeding or any ulcer disease. For the history and lab findings, I believe he most likely he is bleeding from GI tract. The etiology is unclear. The most likely possibly is peptic ulcer disease versus vascular ectasia, erosive gastritis. 2. Down syndrome. 3. Urinary retention in 2018, found to have prostatic hypertrophy and started on medication. 4. Hydrocephalus, on CAT scan in 2018 and Neurology evaluation. Recommend no further workup. 5. Previous surgery of stomach . I did talk with the patient's family, his niece, who has the power of traffic law attorney. I explained to them about the planned treatment for transfusion plan EGD this morning. The procedure in detail explained to the patient. The patient and niece are agreeable. I will plan for EGD today this morning. Job ID: [id number]
[2019-05-18] MEDS ORDERED: traMADol HCl 50 MG TAB PO PRN (18:41)
[2019-05-18] MEDS ORDERED: Morphine 4 MG/ML VIAL SLOW IVP PRN (18:50)
[2019-05-18] MEDS: Morphine 2 MG/ML SYRINGE SLOW IVP PRN ×2 (18:57→23:27)
[2019-05-18 20:06] LABS: Hemoglobin 8.5 g/dL (14.0-18.0)
[2019-05-18] MEDS: Pantoprazole 80 MG in Sodium Chloride 0.9% 100 ML IVPB SCH (22:01)
[2019-05-19] MEDS: Sodium Chloride 0.45% 1,000 ML IV SCH ×3 (05:06→21:36)
[2019-05-19] MEDS: Piperacillin/Tazobactam 3.375 GM in Sodium Chloride 0.9% 100 ML IVPB SCH ×4 (05:06→23:29)
[2019-05-19 06:03] LABS: #Basophils 0.1 thou/uL (0.0-0.2); #Eosinphils 0.1 thou/uL (0.0-0.7); #Lymphocytes 1.5 thou/uL (1.20-3.40); #Monocytes 0.9 thou/uL (0.11-0.59); #Neutrophils 8.3 thou/uL (1.40-6.50); %Basophils 0.5 % (0.0-1.0); %Eosinophils 0.7 % (0.0-10.0); %Lymphocytes 14.2 % (21.0-51.0); %Monocytes 7.9 % (0.0-10.0); %Neutrophils 76.7 % (42.0-75.0); Hemoglobin 8.5 g/dL (14.0-18.0); Mean Corpuscular HGB CONC 35.2 g/dL (32.0-36.0); Mean Corpuscular Hemoglobin 32.8 pg (27.0-31.0); Mean Corpuscular Volume 93.2 fL (78.0-98.0); Mean Platelet Volume 7.5 fL (7.4-10.4); Platelet Count 166 thou/uL (130-400); RBC Distribution Width 14.9 % (11.5-14.5); Red Blood Cell (RBC) Count 2.58 mill/uL (4.70-6.10); White Blood Cell (WBC) Count 10.8 thou/uL (4.8-10.8)
[2019-05-19 06:09] LABS: Anion Gap 9 mmol/L (10-20); BUN (Urea Nitrogen) 37 mg/dL (8.4-25.7); Calc. Creatinine Clearance 57 mL/min (70-130); Calcium 7.7 mg/dL (7.8-10.44); Carbon Dioxide 21 mmol/L (23-31); Chloride 120 mmol/L (98-107); Estimated GFR-MDRD 62; Glucose 98 mg/dL (80-115); Potassium 3.7 mmol/L (3.5-5.1); Sodium 146 mmol/L (136-145)
[2019-05-19] MEDS: Pantoprazole 80 MG in Sodium Chloride 0.9% 100 ML IVPB SCH ×2 (07:16→18:14)
--- NOTE | 2019-05-19 07:33 | PRG ---
DATE OF SERVICE: 05/19/2019 SUBJECTIVE: The patient underwent endoscopy yesterday. Apparently, an ulcer was found. There was not an operative report dictated yet, but from what I can read, it sounds like there was a visible vessel. OBJECTIVE: VITAL SIGNS: Temperature is 98.1, pulse 68, blood pressure 133/50, O2 saturation 92%. He is currently on a Protonix drip. HEENT: Unremarkable. NECK: No adenopathy or JVD. CHEST: Clear to auscultation. CARDIAC: S1, S2 regular. ABDOMEN: Soft and nontender. EXTREMITIES: No edema. LABORATORY DATA: White blood cell count 10.8, hemoglobin 8.5, hematocrit 24.1, and platelet count 166. Sodium 146, potassium 3.7, chloride 120, CO2 of 21, BUN 37, creatinine 1.2, and glucose 98. ASSESSMENT: 1. Gastrointestinal bleeding. 2. Anemia due to blood loss. 3. Question of aspiration pneumonitis. PLAN: I will go ahead and switch him over to half-normal saline. Continue Protonix drip. If okay with Dr. Saravia, can move out to the floor. Job ID: [id number]
[2019-05-19] MEDS ORDERED: Prevnar 13-Val Conj/PF 0.5 ML SYRINGE IM ONE (09:00)
--- NOTE | 2019-05-19 12:49 | PRG ---
DATE OF SERVICE: 05/19/2019 SUBJECTIVE: This is a 68-year-old male with mental retardation, who presents to the ER with melenic stool, anemia, hypertension. He was transfused with 4 units of packed RBCs total. His blood count is stable. one black tarry stool. No nausea. No vomiting. He underwent an emergent EGD yesterday and was found to have an ulceration . He also had a large vascular ectasia . Both were cauterized and injected with epinephrine. He has done well overnight. His blood count is stable OBJECTIVE: GENERAL: He is nonverbal. He is awake and appears comfortable, not moaning and groaning. VITAL SIGNS: Stable. His pulse is 85, blood pressure is 120/76. CARDIOVASCULAR AND LUNGS: Within normal limits. ABDOMEN: Soft. Abdomen is nontender. RECOMMENDATIONS: 1. Diet as tolerated. 2. Continue PPI. 3. May transfer out of the ICU today. Job ID: [id number]
[2019-05-19] MEDS: Morphine 2 MG/ML SYRINGE SLOW IVP PRN ×2 (13:48→18:13)
[2019-05-20] MEDS: Sodium Chloride 0.45% 1,000 ML IV SCH ×2 (03:40→20:23)
[2019-05-20] MEDS: Pantoprazole 80 MG in Sodium Chloride 0.9% 100 ML IVPB SCH ×2 (05:30→18:04)
[2019-05-20] MEDS: Piperacillin/Tazobactam 3.375 GM in Sodium Chloride 0.9% 100 ML IVPB SCH ×3 (05:34→18:03)
[2019-05-20 05:45] LABS: #Basophils 0.1 thou/uL (0.0-0.2); #Eosinphils 0.2 thou/uL (0.0-0.7); #Lymphocytes 1.8 thou/uL (1.20-3.40); #Monocytes 0.8 thou/uL (0.11-0.59); #Neutrophils 6.2 thou/uL (1.40-6.50); %Basophils 0.6 % (0.0-1.0); %Eosinophils 2.5 % (0.0-10.0); %Lymphocytes 19.8 % (21.0-51.0); %Monocytes 8.9 % (0.0-10.0); %Neutrophils 68.3 % (42.0-75.0); Hemoglobin 8.4 g/dL (14.0-18.0); Mean Corpuscular HGB CONC 35.1 g/dL (32.0-36.0); Mean Corpuscular Hemoglobin 33.3 pg (27.0-31.0); Mean Corpuscular Volume 94.9 fL (78.0-98.0); Platelet Count 178 thou/uL (130-400); RBC Distribution Width 14.8 % (11.5-14.5); Red Blood Cell (RBC) Count 2.53 mill/uL (4.70-6.10); White Blood Cell (WBC) Count 9.1 thou/uL (4.8-10.8)
[2019-05-20 05:55] LABS: Anion Gap 10 mmol/L (10-20); BUN (Urea Nitrogen) 21 mg/dL (8.4-25.7); Calc. Creatinine Clearance 51 mL/min (70-130); Calcium 7.8 mg/dL (7.8-10.44); Carbon Dioxide 18 mmol/L (23-31); Chloride 117 mmol/L (98-107); Estimated GFR-MDRD 59; Glucose 81 mg/dL (80-115); Potassium 3.7 mmol/L (3.5-5.1); Sodium 141 mmol/L (136-145)
--- NOTE | 2019-05-20 09:40 | PDOC.HOSPP ---
- Subjective Encounter Date: 05/20/19 Encounter Time: 09:35 Subjective: Doing OK. Not verbally interactive. - Objective Vital Signs & Weight: Vital Signs (12 hours) Temp Pulse Resp BP Pulse Ox 05/20/19 08:51 61 14 135/64 98 05/20/19 04:00 98.2 F 78 14 126/70 95 Weight Admit Weight 145 lb 8.081 oz Weight 136 lb 8 oz Most Recent Monitor Data Heart Rate from ECG 66 NIBP 100/66 NIBP BP-Mean 77 Respiration from ECG 14 SpO2 100 I&O: 05/19/19 05/20/19 05/21/19 06:59 06:59 06:59 Intake Total 1337 1460 Output Total 2440 1690 Balance -1103 -230 Result Diagrams: 05/20/19 05:04 05/20/19 05:04 Hospitalist ROS - Medication Medications: Active Medications Generic Name Dose Route Start Last Admin Trade Name Freq PRN Reason Stop Dose Admin Pantoprazole Sodium 80 mg/ 100 mls @ 10 mls/hr 05/18/19 09:00 05/20/19 05:30 Sodium Chloride IVPB 100 mls INF BEATRIZ Administration Piperacillin Sod/Tazobactam 100 mls @ 200 mls/hr 05/18/19 12:00 05/20/19 05: 34 Sod 3.375 gm/ Sodium Chloride IVPB 100 mls Q6HR BEATRIZ Administration Sodium Chloride 1,000 mls @ 75 mls/hr 05/19/19 07:30 05/20/19 03:40 1/2 Normal Saline IV 1,000 mls .[id number] BEATRIZ Administration Lorazepam 1 mg 05/18/19 09:03 05/18/19 18:11 Ativan SLOW IVP 1 mg Q4H PRN Administration Anxiety/Agitation Morphine Sulfate 4 mg 05/18/19 18:50 05/19/19 23:32 Morphine SLOW IVP 4 mg Q4H PRN Administration Severe Pain (7-10) Morphine Sulfate 2 mg 05/18/19 18:53 05/19/19 18:13 Morphine SLOW IVP 2 mg Q4H PRN Administration Moderate Pain (4-6) Sodium Chloride 10 ml 05/18/19 21:00 05/19/19 21:35 Flush - Normal Saline IVF Not Given Q12HR BEATRIZ - Exam General Appearance: NAD Heart: RRR, no murmur, no gallops, no rubs, normal peripheral pulses Respiratory: CTAB, no wheezes, no rales, no ronchi, normal chest expansion, no tachypnea, normal percussion Gastrointestinal: soft, non-distended, normal bowel sounds Gastrointestinal - other findings: Unclear if he has TTP. He does vocalize with palpation. Non-specific Extremities: no cyanosis, no clubbing, no edema Skin: normal turgor Musculoskeletal: normal tone Hosp A/P (1) GI bleed Code(s): K92.2 - GASTROINTESTINAL HEMORRHAGE, UNSPECIFIED Status: Acute (2) Gastric ulcer Code(s): K25.9 - GASTRIC ULCER, UNSP ACUTE OR CHRONIC, W/O HEMOR OR PERF Status: Acute (3) Gastric AVM Code(s): K31.819 - ANGIODYSPLASIA OF STOMACH AND DUODENUM WITHOUT BLEEDING Status: Acute (4) Anemia associated with acute blood loss Code(s): D62 - ACUTE POSTHEMORRHAGIC ANEMIA Status: Acute (5) BPH (benign prostatic hyperplasia) Code(s): N40.0 - BENIGN PROSTATIC HYPERPLASIA WITHOUT LOWER URINRY TRACT SYMP Status: Acute (6) Urinary retention Code(s): R33.9 - RETENTION OF URINE, UNSPECIFIED Status: Acute (7) Down syndrome Code(s): Q90.9 - DOWN SYNDROME, UNSPECIFIED Status: Chronic - Plan He is doing well post-procedure. Had gastric AVM cauterized. No evidence of ongoing, active bleeding. Hemoglobin stable. Still on Protonix gtt, but that can likely be stopped today. Will defer to GI. Continue to hold ASA. No strong indication for it now. Hx of BPH with retention. Normally gets intermittent cath at the residential facility where he lives. This is based on whether or not he has good UOP on his own. If not, he gets I and O cath. ROBERTO Reyes today and monitor UOP. Will resume his BPH meds that were held initially out of concern for hypotension.
[2019-05-20] MEDS ORDERED: Loratadine 10 MG TAB PO SCH (10:30)
[2019-05-20] MEDS: Morphine 2 MG/ML SYRINGE SLOW IVP PRN ×2 (12:43→20:28)
[2019-05-20] MEDS: Finasteride 5 MG TAB PO SCH ×2 (20:27→20:48)
[2019-05-20] MEDS: Tamsulosin HCl 0.4 MG CAP PO SCH (20:27)
[2019-05-21] MEDS: Piperacillin/Tazobactam 3.375 GM in Sodium Chloride 0.9% 100 ML IVPB SCH ×5 (01:23→23:18)
[2019-05-21] MEDS: Morphine 2 MG/ML SYRINGE SLOW IVP PRN ×3 (05:35→15:05)
[2019-05-21] MEDS: Pantoprazole 80 MG in Sodium Chloride 0.9% 100 ML IVPB SCH ×2 (05:37→19:57)
--- NOTE | 2019-05-21 09:12 | PDOC.EVN ---
Event Note - Event Note Event Note: Had ordered the Reyes removed, but the niece and MPOA requested that we leave it. He has BPH with some obstruction. The MPOA told the nurse that he had a chronically indwelling Reyes in the past per his Urologist. It was only removed because he had begun to pull on it. He is tolerating now. He was requiring approx 5 I an O cath's per day and they were very uncomfortable for him. Agree to leave the Reyes in place.
[2019-05-21] MEDS: Loratadine 10 MG TAB PO SCH (09:16)
[2019-05-21] MEDS: Docusate 100 MG CAP PO SCH (09:16)
--- NOTE | 2019-05-21 09:44 | RAD ---
CHEST 1 VIEW: Date: 05/21/19 INDICATION: History of aspiration pneumonitis. COMPARISON: Prior exam dated 05/18/19. IMPRESSION: There are worsening bibasilar opacities. There is enlarging bilateral pleural effusion, left greater than right. Chronic lung changes and cardiomegaly are stable. No pneumothorax is evident. POS: OFF
--- NOTE | 2019-05-21 10:50 | OP ---
DATE OF PROCEDURE: 05/18/2019 PROCEDURE PERFORMED: Esophagogastroduodenoscopy with injection of epinephrine followed by 7-Gambian BICAP therapy. PREOPERATIVE DIAGNOSES: 1. Gastrointestinal bleeding. 2. Hypotension. 3. Anemia due to blood loss. POSTOPERATIVE DIAGNOSES: 1. Hiatus hernia. 2. The patient apparently has had previous gastric surgery with anastomosis and ulceration of the anastomotic area. At the time of endoscopy, no active bleeding seen. DESCRIPTION OF PROCEDURE: The patient was placed on his left lateral position and was given sedation by Anesthesia Dstart clear liquid dietepartment. A Pentax video gastroscope under direct vision was passed down the oropharynx, past the GE junction into the stomach. The patient has hiatus hernia. The esophageal mucosa appears normal. No ulceration or any bleeding seen. There is a little columnar epithelium coming into the distal esophagus. This was a very short segment. In the fundus and cardia, no pathology seen. The stomach was completely empty of any blood or any coffee-ground material. The patient has previous gastric surgery. In the anastomotic area, what appeared to be the two openings. One has been going into small bowel without any difficulty. Other one is like a pouch. At the anastomotic area, the patient had linear ulceration with a big vessel at the margin of the ulcer. There are active bleeding seen. There was another large AVM, very diffuse, over the lower part of the stomach, close to the anastomosis. I did inject 1:10,000 epinephrine at 1 mL of increment to a total dose of 9 mL at the visible vessel. Following the injection of 2 mL , some bleeding. Another 7 mL injected at the same location for control of bleeding. Blood loss was very minimal. The area was cauterized with a 7-Gambian BICAP probe with good hemostasis. The large AVMs were seen over the lower part of the stomach close to the anastomotic area was injected again with 1:10,000 epinephrine increment to a total dose of 5 mL. Following injection, this was cauterized with 7-Gambian BICAP therapy with good hemostasis. The stomach was decompressed and the scope removed. RECOMMENDATIONS: 1. N.p.o. for now. 2. Follow up H and H. 3. May start clear liquid diet tomorrow, if has no recurrence of bleeding. Job ID: [id number]
--- NOTE | 2019-05-21 12:03 | PRG ---
DATE OF SERVICE: 05/20/2019 SUBJECTIVE: This is a 68-year-old male with mental retardation, presented with melena, anemia BICAP therapy. He has done well over the last 24 hours. No nausea, vomiting. He has no more black tarry stool. His blood count is stable around 8.5, hematocrit 24. He is tolerating diet. OBJECTIVE: VITAL SIGNS: Stable. Pulse is 72, blood pressure 149/72. CARDIOVASCULAR SYSTEM: First and second heart sounds. CLINICAL IMPRESSION: 1. Gastrointestinal bleeding. 2. Anastomotic ulcer. 3. Vascular ectasia, gastric body, status post BICAP therapy. RECOMMENDATIONS: 1. Diet as tolerated. 2. PPI . Job ID: [id number]
[2019-05-21] MEDS: Sodium Chloride 0.45% 1,000 ML IV SCH ×2 (13:45→18:10)
[2019-05-21] MEDS ORDERED: Sodium Chloride 0.45% 1,000 ML IV SCH (16:00)
[2019-05-21] MEDS: Finasteride 5 MG TAB PO SCH (20:05)
[2019-05-21] MEDS: Tamsulosin HCl 0.4 MG CAP PO SCH (20:13)
--- NOTE | 2019-05-21 22:00 | PDOC.HOSPP ---
- Subjective Encounter Date: 05/21/19 Encounter Time: 14:00 non-verbal Subjective: Patient seen and examined for Anemia/Aspiration. No overnight events - Objective Vital Signs & Weight: Vital Signs (12 hours) Temp Pulse Resp BP Pulse Ox 05/21/19 20:00 105/66 99 05/21/19 19:28 99.6 F 79 22 H 94/53 L 99 05/21/19 17:47 98.6 F 69 18 112/77 95 05/21/19 12:20 97.9 F 77 18 116/85 95 Weight Admit Weight 145 lb 8.081 oz Weight 133 lb Most Recent Monitor Data Heart Rate from ECG 66 NIBP 100/66 NIBP BP-Mean 77 Respiration from ECG 14 SpO2 100 I&O: 05/20/19 05/21/19 05/22/19 06:59 06:59 06:59 Intake Total 1460 2580 1155 Output Total 1690 1900 900 Balance -230 680 255 Result Diagrams: 05/20/19 05:04 05/20/19 05:04 Radiology Reviewed by me: Yes (CXR - B/L infiltrates) EKG Reviewed by me: Yes (Tele SR) Hospitalist ROS - Review of Systems ROS unobtainable: due to mental status - Medication Medications: Active Medications Generic Name Dose Route Start Last Admin Trade Name Freq PRN Reason Stop Dose Admin Docusate Sodium 100 mg 05/21/19 09:00 05/21/19 09:16 Colace PO 100 mg DAILY BEATRIZ Administration Finasteride 5 mg 05/20/19 21:00 05/21/19 20:05 Proscar PO 5 mg HS BEATRIZ Administration Piperacillin Sod/Tazobactam 100 mls @ 200 mls/hr 05/18/19 12:00 05/21/19 18: 32 Sod 3.375 gm/ Sodium Chloride IVPB 100 mls Q6HR BEATRZI Administration Sodium Chloride 1,000 mls @ 30 mls/hr 05/21/19 16:02 05/21/19 18:10 1/2 Normal Saline IV 1,000 mls .Q24H BEATRIZ Administration Loratadine 10 mg 05/21/19 09:00 05/21/19 09:16 Claritin PO 10 mg DAILY BEATRIZ Administration Lorazepam 1 mg 05/18/19 09:03 05/18/19 18:11 Ativan SLOW IVP 1 mg Q4H PRN Administration Anxiety/Agitation Morphine Sulfate 4 mg 05/18/19 18:50 05/19/19 23:32 Morphine SLOW IVP 4 mg Q4H PRN Administration Severe Pain (7-10) Morphine Sulfate 2 mg 05/18/19 18:53 05/21/19 15:05 Morphine SLOW IVP 2 mg Q4H PRN Administration Moderate Pain (4-6) Quetiapine Fumarate 300 mg 05/20/19 21:00 05/21/19 20:06 Seroquel PO 300 mg HS BEATRIZ Administration Sodium Chloride 10 ml 05/18/19 21:00 05/21/19 20:13 Flush - Normal Saline IVF Not Given Q12HR BEATRIZ Tamsulosin HCl 0.4 mg 05/20/19 21:00 05/21/19 20:13 Flomax PO Not Given HS BEATRIZ - Exam General Appearance: NAD Heart: RRR, no rubs Respiratory: no wheezes, rales, rhonchi Gastrointestinal: soft, normal bowel sounds, no guarding, no rigidity Extremities: no edema Hosp A/P (1) GI bleed Code(s): K92.2 - GASTROINTESTINAL HEMORRHAGE, UNSPECIFIED Status: Acute (2) Anemia associated with acute blood loss Code(s): D62 - ACUTE POSTHEMORRHAGIC ANEMIA Status: Acute (3) Gastric ulcer Code(s): K25.9 - GASTRIC ULCER, UNSP ACUTE OR CHRONIC, W/O HEMOR OR PERF Status: Acute (4) Aspiration pneumonitis Code(s): J69.0 - PNEUMONITIS DUE TO INHALATION OF FOOD AND VOMIT Status: Acute (5) Urinary retention Code(s): R33.9 - RETENTION OF URINE, UNSPECIFIED Status: Acute (6) BPH (benign prostatic hyperplasia) Code(s): N40.0 - BENIGN PROSTATIC HYPERPLASIA WITHOUT LOWER URINRY TRACT SYMP Status: Chronic (7) Down syndrome Code(s): Q90.9 - DOWN SYNDROME, UNSPECIFIED Status: Chronic (8) Swallowing dysfunction Code(s): R13.10 - DYSPHAGIA, UNSPECIFIED Status: Chronic - Plan plan discussed w/ family, tong catheter, continue antibiotics, DVT proph w/SCDs Change Protonix drip to BID Family declining PEG Cont IV Zosyn Reduce IVF to KVO Repeat CXR in 2 days AM labs Transfer to medical Family requesting different jail facility
[2019-05-22] MEDS ORDERED: Sodium Chloride 0.9% 250 ML IV SCH ×2 (04:00→04:30)
[2019-05-22 04:38] LABS: Hemoglobin 8.3 g/dL (14.0-18.0)
[2019-05-22 04:39] LABS: ALT (SGPT) 16 U/L (8-55); AST (SGOT) 15 U/L (5-34); Albumin 2.2 g/dL (3.4-4.8); Alkaline Phosphatase 79 U/L (40-110); Anion Gap 9 mmol/L (10-20); BUN (Urea Nitrogen) 12 mg/dL (8.4-25.7); Bilirubin, Total 0.5 mg/dL (0.2-1.2); Calc. Creatinine Clearance 52 mL/min (70-130); Calcium 7.6 mg/dL (7.8-10.44); Carbon Dioxide 20 mmol/L (23-31); Chloride 115 mmol/L (98-107); Estimated GFR-MDRD 62; Globulin 2.3 g/dL (2.4-3.5); Glucose 95 mg/dL (80-115); Magnesium 1.7 mg/dL (1.6-2.6); Potassium 3.1 mmol/L (3.5-5.1); Protein, Total 4.5 g/dL (5.8-8.1); Sodium 141 mmol/L (136-145)
[2019-05-22 04:42] LABS: #Eosinphils 0.3 thou/uL (0.0-0.7); #Lymphocytes 1.5 thou/uL (1.20-3.40); #Monocytes 0.6 thou/uL (0.11-0.59); %Basophils 0.4 % (0.0-1.0); %Lymphocytes 23.2 % (21.0-51.0); %Neutrophils 63.3 % (42.0-75.0); Hemoglobin 8.2 g/dL (14.0-18.0); Mean Corpuscular HGB CONC 34.5 g/dL (32.0-36.0); Mean Corpuscular Hemoglobin 32.9 pg (27.0-31.0); Mean Corpuscular Volume 95.5 fL (78.0-98.0); Mean Platelet Volume 7.4 fL (7.4-10.4); Platelet Count 206 thou/uL (130-400); RBC Distribution Width 15.2 % (11.5-14.5); White Blood Cell (WBC) Count 6.4 thou/uL (4.8-10.8)
[2019-05-22] MEDS: Piperacillin/Tazobactam 3.375 GM in Sodium Chloride 0.9% 100 ML IVPB SCH ×4 (05:04→23:09)
[2019-05-22] MEDS: Docusate 100 MG CAP PO SCH (08:34)
[2019-05-22] MEDS: Loratadine 10 MG TAB PO SCH (08:34)
[2019-05-22] MEDS: Pantoprazole 40 MG VIAL IVP SCH ×2 (08:34→20:15)
[2019-05-22] MEDS ORDERED: Potassium Chloride 40 MEQ in Sodium Chloride 0.9% 250 ML 250 ML IVPB SCH (09:15)
[2019-05-22 13:14] VITALS: BMI 27.9
[2019-05-22] MEDS: Sodium Chloride 0.45% 1,000 ML IV SCH ×2 (15:33→23:09)
[2019-05-22] MEDS: Finasteride 5 MG TAB PO SCH (20:14)
[2019-05-22] MEDS: Sodium Chloride 0.9% (PF) 10 ML VIAL FS PRN (20:15)
[2019-05-22] MEDS: Tamsulosin HCl 0.4 MG CAP PO SCH (20:15)
--- NOTE | 2019-05-22 23:00 | PDOC.HOSPP ---
- Subjective Encounter Date: 05/22/19 Encounter Time: 19:30 Subjective: Patient seen and examined for GI bleed/Pneumonia. Poor appetite. No new complaints. No overnight events - Objective Vital Signs & Weight: Vital Signs (12 hours) Temp Pulse Resp BP Pulse Ox 05/22/19 19:35 95 05/22/19 19:30 98.7 F 83 20 109/64 95 Weight Admit Weight 145 lb 8.081 oz Weight 129 lb 3 oz Most Recent Monitor Data Heart Rate from ECG 66 NIBP 100/66 NIBP BP-Mean 77 Respiration from ECG 14 SpO2 100 I&O: 05/21/19 05/22/19 05/23/19 06:59 06:59 06:59 Intake Total 2580 2035 Output Total 1900 1925 650 Balance 680 110 -650 Result Diagrams: 05/22/19 04:10 05/23/19 09:36 Hospitalist ROS - Review of Systems ROS unobtainable: due to mental status - Medication Medications: Active Medications Generic Name Dose Route Start Last Admin Trade Name Freq PRN Reason Stop Dose Admin Docusate Sodium 100 mg 05/21/19 09:00 05/22/19 08:34 Colace PO 100 mg DAILY BEATRIZ Administration Finasteride 5 mg 05/20/19 21:00 05/22/19 20:14 Proscar PO 5 mg HS BEATRIZ Administration Piperacillin Sod/Tazobactam 100 mls @ 200 mls/hr 05/18/19 12:00 05/22/19 17: 30 Sod 3.375 gm/ Sodium Chloride IVPB 100 mls Q6HR BEATRIZ Administration Sodium Chloride 1,000 mls @ 30 mls/hr 05/21/19 16:02 05/22/19 15:33 1/2 Normal Saline IV Not Given .Q24H BEATRIZ Loratadine 10 mg 05/21/19 09:00 05/22/19 08:34 Claritin PO 10 mg DAILY BEATRIZ Administration Lorazepam 1 mg 05/18/19 09:03 05/18/19 18:11 Ativan SLOW IVP 1 mg Q4H PRN Administration Anxiety/Agitation Morphine Sulfate 4 mg 05/18/19 18:50 05/19/19 23:32 Morphine SLOW IVP 4 mg Q4H PRN Administration Severe Pain (7-10) Morphine Sulfate 2 mg 05/18/19 18:53 05/21/19 15:05 Morphine SLOW IVP 2 mg Q4H PRN Administration Moderate Pain (4-6) Pantoprazole Sodium 40 mg 05/22/19 09:00 05/22/19 20:15 Protonix IVP 40 mg Q12HR BEATRIZ Administration Quetiapine Fumarate 300 mg 05/20/19 21:00 05/22/19 20:15 Seroquel PO 300 mg HS BEATRIZ Administration Sodium Chloride 10 ml 05/18/19 21:00 05/22/19 20:15 Flush - Normal Saline IVF Not Given Q12HR BEATRIZ Sodium Chloride 10 ml 05/21/19 22:00 05/22/19 20:15 Normal Saline Pf FS 10 ml PRN PRN Administration RECONSTITUTION Tamsulosin HCl 0.4 mg 05/20/19 21:00 05/22/19 20:15 Flomax PO 0.4 mg HS BEATRIZ Administration - Exam Neck: no JVD Heart: RRR, no gallops Respiratory: rales (at bases), rhonchi Gastrointestinal: soft, normal bowel sounds Hosp A/P (1) GI bleed Code(s): K92.2 - GASTROINTESTINAL HEMORRHAGE, UNSPECIFIED Status: Acute (2) Anemia associated with acute blood loss Code(s): D62 - ACUTE POSTHEMORRHAGIC ANEMIA Status: Acute (3) Gastric ulcer Code(s): K25.9 - GASTRIC ULCER, UNSP ACUTE OR CHRONIC, W/O HEMOR OR PERF Status: Acute (4) Aspiration pneumonitis Code(s): J69.0 - PNEUMONITIS DUE TO INHALATION OF FOOD AND VOMIT Status: Acute (5) Urinary retention Code(s): R33.9 - RETENTION OF URINE, UNSPECIFIED Status: Acute (6) BPH (benign prostatic hyperplasia) Code(s): N40.0 - BENIGN PROSTATIC HYPERPLASIA WITHOUT LOWER URINRY TRACT SYMP Status: Chronic (7) Down syndrome Code(s): Q90.9 - DOWN SYNDROME, UNSPECIFIED Status: Chronic (8) Swallowing dysfunction Code(s): R13.10 - DYSPHAGIA, UNSPECIFIED Status: Chronic - Plan Cont IV Zosyn Cont Protonix No PEG per family Consult Palliative care Repeat CXR in AM Await SNF eval AM labs
[2019-05-23] MEDS: Piperacillin/Tazobactam 3.375 GM in Sodium Chloride 0.9% 100 ML IVPB SCH ×4 (05:23→23:00)
[2019-05-23] MEDS: Docusate 100 MG CAP PO SCH (08:25)
[2019-05-23] MEDS: Loratadine 10 MG TAB PO SCH (08:25)
[2019-05-23] MEDS: Pantoprazole 40 MG VIAL IVP SCH ×2 (08:26→21:06)
--- NOTE | 2019-05-23 09:26 | RAD ---
PORTABLE CHEST: Date: 05/23/19 INDICATION: Pneumonia. Follow-up. COMPARISON: 05/21/19. FINDINGS: Hazy infiltrate and/or atelectasis in the left lung base appears unchanged in appearance. Hazy markin gs in the right lung base are again noted, but stable. Upper lung [place] remain clear. Heart size mil dly prominent, but stable. IMPRESSION: No acute interval change. POS: OFF
[2019-05-23 09:57] LABS: Anion Gap 13 mmol/L (10-20); BUN (Urea Nitrogen) 10 mg/dL (8.4-25.7); Calc. Creatinine Clearance 50 mL/min (70-130); Carbon Dioxide 19 mmol/L (23-31); Chloride 111 mmol/L (98-107); Estimated GFR-MDRD 64; Glucose 103 mg/dL (80-115); Potassium 3.6 mmol/L (3.5-5.1); Sodium 139 mmol/L (136-145)
[2019-05-23] MEDS: Sodium Chloride 0.45% 1,000 ML IV SCH (15:21)
[2019-05-23] MEDS: Tamsulosin HCl 0.4 MG CAP PO SCH (21:06)
[2019-05-23] MEDS: Finasteride 5 MG TAB PO SCH (21:06)
--- NOTE | 2019-05-23 22:49 | PDOC.HOSPP ---
- Subjective Encounter Date: 05/23/19 Encounter Time: 09:00 non-verbal Subjective: Patient seen and examined for Aspiration Pneumonia. Appears comfortable. No overnight events - Objective Vital Signs & Weight: Vital Signs (12 hours) Temp Pulse Resp BP Pulse Ox 05/23/19 19:30 98.5 F 72 20 92/53 L 97 Weight Admit Weight 145 lb 8.081 oz Weight 124 lb 2 oz Most Recent Monitor Data Heart Rate from ECG 66 NIBP 100/66 NIBP BP-Mean 77 Respiration from ECG 14 SpO2 100 I&O: 05/22/19 05/23/19 05/24/19 06:59 06:59 06:59 Intake Total 2034 850 2019 Output Total 5 1550 600 Balance 110 -700 1420 Result Diagrams: 05/22/19 04:10 05/23/19 09:36 Radiology Reviewed by me: Yes (CXR - no ne changes) Hospitalist ROS - Review of Systems Respiratory: denies: cough, dry, shortness of breath, hemoptysis, SOB with excertion, pleuritic pain, sputum, wheezing, other Cardiovascular: denies: chest pain, palpitations, orthopnea, paroxysmal noc. dyspnea, edema, light headedness, other - Medication Medications: Active Medications Generic Name Dose Route Start Last Admin Trade Name Freq PRN Reason Stop Dose Admin Docusate Sodium 100 mg 05/21/19 09:00 05/23/19 08:25 Colace PO 100 mg DAILY BEATRIZ Administration Finasteride 5 mg 05/20/19 21:00 05/23/19 21:06 Proscar PO 5 mg HS BEATRIZ Administration Piperacillin Sod/Tazobactam 100 mls @ 200 mls/hr 05/18/19 12:00 05/23/19 17: 03 Sod 3.375 gm/ Sodium Chloride IVPB 100 mls Q6HR BEATRIZ Administration Sodium Chloride 1,000 mls @ 30 mls/hr 05/21/19 16:02 05/23/19 15:21 1/2 Normal Saline IV Not Given .Q24H BEATRIZ Loratadine 10 mg 05/21/19 09:00 05/23/19 08:25 Claritin PO 10 mg DAILY BEATRIZ Administration Lorazepam 1 mg 05/18/19 09:03 05/18/19 18:11 Ativan SLOW IVP 1 mg Q4H PRN Administration Anxiety/Agitation Morphine Sulfate 4 mg 05/18/19 18:50 05/19/19 23:32 Morphine SLOW IVP 4 mg Q4H PRN Administration Severe Pain (7-10) Morphine Sulfate 2 mg 05/18/19 18:53 05/21/19 15:05 Morphine SLOW IVP 2 mg Q4H PRN Administration Moderate Pain (4-6) Pantoprazole Sodium 40 mg 05/22/19 09:00 05/23/19 21:06 Protonix IVP 40 mg Q12HR BEATRIZ Administration Quetiapine Fumarate 300 mg 05/20/19 21:00 05/23/19 21:06 Seroquel PO 300 mg HS BEATRIZ Administration Sodium Chloride 10 ml 05/18/19 21:00 05/23/19 21:08 Flush - Normal Saline IVF 10 ml Q12HR BEATRIZ Administration Sodium Chloride 10 ml 05/21/19 22:00 05/22/19 20:15 Normal Saline Pf FS 10 ml PRN PRN Administration RECONSTITUTION Tamsulosin HCl 0.4 mg 05/20/19 21:00 05/23/19 21:06 Flomax PO 0.4 mg HS BEATRIZ Administration - Exam General Appearance: NAD Neck: supple, no JVD Heart: RRR, no gallops Respiratory: CTAB, no rales Gastrointestinal: soft, non-tender, normal bowel sounds Extremities: no edema Hosp A/P (1) GI bleed Code(s): K92.2 - GASTROINTESTINAL HEMORRHAGE, UNSPECIFIED Status: Acute (2) Anemia associated with acute blood loss Code(s): D62 - ACUTE POSTHEMORRHAGIC ANEMIA Status: Acute (3) Gastric ulcer Code(s): K25.9 - GASTRIC ULCER, UNSP ACUTE OR CHRONIC, W/O HEMOR OR PERF Status: Acute (4) Aspiration pneumonitis Code(s): J69.0 - PNEUMONITIS DUE TO INHALATION OF FOOD AND VOMIT Status: Acute (5) Urinary retention Code(s): R33.9 - RETENTION OF URINE, UNSPECIFIED Status: Acute (6) BPH (benign prostatic hyperplasia) Code(s): N40.0 - BENIGN PROSTATIC HYPERPLASIA WITHOUT LOWER URINRY TRACT SYMP Status: Chronic (7) Down syndrome Code(s): Q90.9 - DOWN SYNDROME, UNSPECIFIED Status: Chronic (8) Swallowing dysfunction Code(s): R13.10 - DYSPHAGIA, UNSPECIFIED Status: Chronic - Plan Cont IV Zosyn - change to Augmentin at dc Cont Protonix - change to PO at dc No PEG per family Palliative care consulted Await SNF eval AM labs
[2019-05-24] MEDS: Piperacillin/Tazobactam 3.375 GM in Sodium Chloride 0.9% 100 ML IVPB SCH ×2 (05:26→13:01)
[2019-05-24] MEDS: Docusate 100 MG CAP PO SCH (08:48)
[2019-05-24] MEDS: Loratadine 10 MG TAB PO SCH (08:48)
[2019-05-24] MEDS: Sodium Chloride 0.9% (PF) 10 ML VIAL FS PRN (09:05)
[2019-05-24] MEDS: Pantoprazole 40 MG VIAL IVP SCH (09:05)
[2019-05-24 16:44] VITALS: TEMP 98.5
[2019-05-24 16:47] VITALS: BP 136/79
--- NOTE | 2019-05-24 19:06 | DIS ---
DATE OF ADMISSION: 05/18/2019 DATE OF DISCHARGE: 05/24/2019 DISCHARGE DISPOSITION: Assisted Facility. FOLLOWUP: 1. Follow up with primary care physician in 1 week. 2. Follow up with Dr. Saravia in 2 weeks. CODE STATUS: Do not intubate. DISCHARGE MEDICATIONS: 1. Augmentin 400 mg b.i.d. 2. Proscar 5 mg at bedtime. 3. Protonix 40 mg b.i.d. 4. MiraLAX 17 g daily. 5. Florastor 250 mg daily. 6. Flomax 0.4 mg at bedtime. 7. Tramadol as needed. 8. Maalox as needed. 9. Cetirizine 10 mg daily. 10. Colace 100 mg daily. 11. Seroquel 300 mg at bedtime. 12. Mucinex as needed. 13. Tylenol as needed. INPATIENT MINISTER OF RELIGION: Gastroenterology, Dr. Saravia. DIAGNOSTIC TESTS: 1. On admission, hemoglobin was 5.8; at discharge was 8.3. 2. PT was 18.4 and INR 1.5. 3. Creatinine 1.14. 4. Potassium 3.4 with chloride of 124 on admission. BUN was 55. 5. Pre-albumin level was 9.0 and total albumin 1.9. Urinalysis showed 11 to 20 wbc's with 3+ bacteria. 6. Urine cultures were not done on admission. 7. Blood cultures were negative. 8. CT scan of the abdomen and pelvis on admission showed findings consistent with right lower lobe aspiration pneumonia with severe bilateral pleural effusion, and severe atrophic left kidney with chronic ureteropelvic junction obstruction. There was also moderate retained retention of the stool within the colon with asymmetric wall thickening of the bladder. 9. Chest x-ray on admission showed findings consistent with aspiration pneumonia. INPATIENT PROCEDURES: On 18 May 2019, the patient underwent EGD with injection of epinephrine. There was no active bleeding was seen. He was found to have an anastomotic ulcer as well as hiatal hernia. BRIEF HOSPITAL COURSE: The patient is a 68-year-old male with Down syndrome, currently residing at a facility in [place], presented to the hospital with generalized weakness along with lower gastrointestinal bleeding. His hemoglobin on admission was 5.8. He received total of 2 units of PRBC. He underwent EGD as discussed above. He was placed on Protonix drip that has been transitioned to oral. He did not have any new recurrence of bleeding. A Reyes catheter was placed on admission. The family requested to leave Reyes until evaluated by Urology as outpatient due to history of chronic urinary retention. He has been accepted at [facility]. FINAL DIAGNOSES: 1. Gastrointestinal bleeding secondary to anastomotic ulcer. 2. Acute blood loss anemia. 3. Chronic urinary retention requiring Reyes catheter. 4. Aspiration pneumonia. 5. Benign prostatic hypertrophy. 6. Down syndrome. 7. Swallow dysfunction. 8. Hypernatremia. 9. Severe protein-calorie malnutrition. 10. Metabolic acidosis. 11. Hypokalemia. 12. Suspected urinary tract infection. No urine cultures were sent on admission. He was placed on IV Zosyn throughout this hospital stay. This has been transitioned to Augmentin for aspiration pneumonia. TIME SPENT: Total time coordinating the discharge of this patient was 39 minutes. Job ID: [id number]
--- NOTE | 2019-05-25 08:04 | PQF ---
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 Clinical indicators are provided on the bottom of this form for your review Please check appropriate box(s): [ ] Anastomotic ulcer due to complication of previous surgery [ ] Anastomotic ulcer not due to complication of previous surgery [x ] Unable to determine For continuity of documentation, please document condition throughout progress notes and discharge summary. Thank You. CLINICAL INDICATORS - SIGNS / SYMPTOMS / LABS - GI bleeding sec to anastomotic ulcer-DS, 05/24, SABINO HOLLAND MD - The patient has previous gastric surgery-EGD, 05/18, Rani Villanueva MD - ulceration of the anastomotic area-EGD, 05/18, Rani Villanueva MD - there was another large AVM-EGD- 05/18, Rani Villanueva MD - the patient had liner ulceration with big vessel at the margin of the ulcer- EGD, 05/18, Rani Villanueva MD RISK FACTORS -Hiatal hernia- DS, 05/24, SABINO HOLLAND MD -Severe protein calorie malnutrition-DS, 05/24, SABINO HOLLAND MD -previous gastric surgery-EGD, 05/18, Rani Villanueva MD TREATMENTS: -Injection of epinephrine-EGD, 05/18, Rani Villanueva MD -Protonix-IV, MAR, 05/18 (This form is maintained as a part of the permanent medical record) 2014 [employer]. All Rights Reserved Taylor Morel [not provided] [not provided] MTDD
== END 2019-05-24 17:19 | DRG 377 ==
LOC: ERS 04:35 → CCU 12:32 → 2NO 05-19 09:33 → T4-A 05-21 18:25
PROVIDERS: ADMIT Internal Medicine; ATTEND Internal Medicine
PROC: 3E0G8GC Introduction of Other Therapeutic Substance into Upper GI, Via Natural or Artificial Opening Endoscopic (ICD-10-PCS; principal; 2019-05-18)
PROC: 30233N1 Transfusion of Nonautologous Red Blood Cells into Peripheral Vein, Percutaneous Approach (ICD-10-PCS; 2019-05-18)
DX: K28.4 Chronic or unspecified gastrojejunal ulcer with hemorrhage (principal); J69.0 Pneumonitis due to inhalation of food and vomit; E43 Unspecified severe protein-calorie malnutrition; R57.1 Hypovolemic shock; K91.89 Other postprocedural complications and disorders of digestive system; D62 Acute posthemorrhagic anemia; E87.0 Hyperosmolality and hypernatremia; E87.2 Acidosis; N39.0 Urinary tract infection, site not specified; G91.9 Hydrocephalus, unspecified; R33.8 Other retention of urine; N40.1 Benign prostatic hyperplasia with lower urinary tract symptoms; E87.6 Hypokalemia; K59.00 Constipation, unspecified; R13.10 Dysphagia, unspecified; K21.9 Gastro-esophageal reflux disease without esophagitis; I12.9 Hypertensive chronic kidney disease with stage 1 through stage 4 chronic kidney disease, or unspecified chronic kidney disease; N18.3 Chronic kidney disease, stage 3 (moderate); K44.9 Diaphragmatic hernia without obstruction or gangrene; Z68.26 Body mass index [BMI] 26.0-26.9, adult; Q90.9 Down syndrome, unspecified
CPT/HCPCS: 36415; 36430; 51702; 71045; 74177; 80048; 80053; 81003; 81015; 83605; 83735; 84134; 85025; 85610; 85730; 86850; 86900; 86901; 87040; 90471; 90670; 96361; 96365; 96366; 96367; 96375; C9113; G0009; J0171; J2060; J2270; J2543; J2704; J3370; J3480; J3490; J7050; P9016; Q9966

== ENCOUNTER 2019-06-16 20:57 | Inpatient (IN) | payer MEDICARE, MEDICAID ==
--- NOTE | 2019-06-16 21:44 | RAD ---
CHEST ONE VIEW: 06/16/19 HISTORY: Altered mental status. COMPARISON: 05/23/19. FINDINGS: Normal cardiac silhouette. Pulmonary vessels are unremarkable. Veil-like opacities in the lung bases likely represent small effusion with adjacent parenchymal changes. Findings are similar to the previ ous examination. No pneumothorax or acute osseous abnormality. IMPRESSION: Hazy opacities in the lung bases, unchanged. POS: H
[2019-06-16 21:53] LABS: #Basophils 0.1 thou/uL (0.0-0.2); #Eosinphils 0.2 thou/uL (0.0-0.7); #Lymphocytes 1.6 thou/uL (1.20-3.40); #Monocytes 0.5 thou/uL (0.11-0.59); #Neutrophils 2.3 thou/uL (1.40-6.50); %Basophils 1.3 % (0.0-1.0); %Eosinophils 3.4 % (0.0-10.0); %Lymphocytes 35.1 % (21.0-51.0); %Monocytes 11.1 % (0.0-10.0); %Neutrophils 49.1 % (42.0-75.0); Hemoglobin 9.4 g/dL (14.0-18.0); Mean Corpuscular HGB CONC 31.2 g/dL (32.0-36.0); Mean Corpuscular Hemoglobin 29.9 pg (27.0-31.0); Mean Corpuscular Volume 95.6 fL (78.0-98.0); Mean Platelet Volume 7.7 fL (7.4-10.4); Platelet Count 290 thou/uL (130-400); RBC Distribution Width 15.3 % (11.5-14.5); Red Blood Cell (RBC) Count 3.15 mill/uL (4.70-6.10); White Blood Cell (WBC) Count 4.7 thou/uL (4.8-10.8)
[2019-06-16 21:58] LABS: Bilirubin Negative (Negative); Blood, Urine Negative (Negative); Clarity Extra Turbid (Clear); Glucose, Urine (Dipstick) Normal (Negative); Leukocyte 500 Leu/uL (Negative); Nitrite Negative (Negative); Protein, Urine (Dipstick) 100 mg/dL (Neg-Trace); Squamous Epithelial None Seen HPF (0-3); Urobilinogen Normal mg/dL (Less than 2); WBC/HPF Greater than 50 HPF (0-3)
[2019-06-16 22:02] LABS: Bacteria/HPF 2+ HPF (None Seen); Triple Phosphate Crystal 2+ HPF (None Seen)
[2019-06-16 22:13] LABS: ALT (SGPT) Less than 7 U/L (8-55); AST (SGOT) 10 U/L (5-34); Albumin 2.8 g/dL (3.4-4.8); Alkaline Phosphatase 84 U/L (40-110); Anion Gap 11 mmol/L (10-20); BUN (Urea Nitrogen) 23 mg/dL (8.4-25.7); Bilirubin, Total 0.2 mg/dL (0.2-1.2); Calc. Creatinine Clearance 0 mL/min (70-130); Calcium 7.8 mg/dL (7.8-10.44); Carbon Dioxide 24 mmol/L (23-31); Chloride 117 mmol/L (98-107); Estimated GFR-MDRD 60; Globulin 2.6 g/dL (2.4-3.5); Glucose 94 mg/dL (80-115); Protein, Total 5.4 g/dL (5.8-8.1); Sodium 148 mmol/L (136-145)
[2019-06-16] MEDS ORDERED: cefTRIAXone\\ROCEPHIN 2 GM VIAL ONE (23:35)
[2019-06-17] MEDS ORDERED: Ondansetron ODT 4 MG TAB PO PRN (06:48)
[2019-06-17] MEDS ORDERED: Acetaminophen 650 MG Suppository PR PRN (06:48)
[2019-06-17] MEDS ORDERED: Calcium Carbonate 500 MG ChewTAB PO PRN (06:48)
[2019-06-17] MEDS ORDERED: Bisacodyl 10 MG SUPP PR PRN (06:48)
[2019-06-17] MEDS ORDERED: Ondansetron PF 4 MG/2 ML Vial IVP PRN (06:48)
[2019-06-17] MEDS: Dextrose 5 %-0.45 % NaCl 1,000 ML IV SCH ×4 (07:45→20:30)
[2019-06-17] MEDS: Acetaminophen 325 MG TAB PO PRN ×3 (09:03→20:27)
[2019-06-17] MEDS: Saccharomyces boulardii 250 MG CAP PO SCH (09:04)
[2019-06-17] MEDS: Senokot S 8.6-50 MG TAB PO SCH ×2 (09:04→20:27)
--- NOTE | 2019-06-17 18:24 | PDOC.HOSPP ---
- Subjective Encounter Date: 06/17/19 Encounter Time: 18:00 Subjective: f/u AMS, UTI and fever. Receiving Rocephin currently. - Objective Vital Signs & Weight: Vital Signs (12 hours) Temp Pulse Resp BP Pulse Ox 06/17/19 16:10 99.1 F 58 L 16 119/69 97 06/17/19 13:00 99.2 F 60 16 123/65 97 06/17/19 12:00 98.6 F 60 20 97 06/17/19 08:47 99.8 F H 71 18 140/77 95 Weight Weight 127 lb 10.362 oz I&O: 06/16/19 06/17/19 06/18/19 06:59 06:59 06:59 Intake Total 200 1490 Output Total 750 700 Balance -550 790 Result Diagrams: 06/16/19 21:45 06/16/19 21:45 Additional Labs: Microbiology 06/16/19 23:10 Venous blood - Left Hand Blood Culture - Preliminary Specimen has been received and culture in progress. No Growth to date. 06/16/19 21:43 Venous blood - Left Hand Blood Culture - Preliminary Specimen has been received and culture in progress. No Growth to date. 06/16/19 21:14 Urine voided Urine Culture - Preliminary Radiology Reviewed by me: Yes (PCXR - basilar atelectasis) Hospitalist ROS - Medication Medications: Active Medications Generic Name Dose Route Start Last Admin Trade Name Freq PRN Reason Stop Dose Admin Acetaminophen 650 mg 06/17/19 06:48 06/17/19 17:02 Tylenol PO 650 mg Q4H PRN Administration Headache/Fever/Mild Pain (1-3) Dextrose/Sodium Chloride 1,000 mls @ 100 mls/hr 06/17/19 07:00 06/17/19 17:06 D5 1/2 Ns IV Not Given .Q10H BEATRIZ Pantoprazole Sodium 40 mg 06/17/19 09:00 06/17/19 09:04 Protonix PO 40 mg DAILY BEATRIZ Administration Saccharomyces Boulardii 250 mg 06/17/19 09:00 06/17/19 09:04 Florastor PO 250 mg DAILY BEATRIZ Administration Senna/Docusate Sodium 2 tab 06/17/19 09:00 06/17/19 09:04 Senokot S PO 2 tab BID BEATRIZ Administration Sodium Chloride 10 ml 06/17/19 06:48 06/17/19 09:08 Flush - Normal Saline IVF 10 ml PRN PRN Administration Saline Flush - Exam General Appearance: awake alert General - other findings: non-verbal Eye: PERRL, anicteric sclera ENT: normocephalic atraumatic, no oropharyngeal lesions Neck: supple, symmetric, no JVD, no thyromegaly Heart: RRR, no murmur, no gallops, no rubs, normal peripheral pulses Respiratory: no wheezes Respiratory - other findings: occasional rhonchi Gastrointestinal: soft, non-tender, non-distended, normal bowel sounds Extremities: no cyanosis, no edema Skin: normal turgor, no lesions Neurological: cranial nerve grossly intact, no new deficit Neurological - other findings: non-verbal Musculoskeletal: generalized weakness Psychiatric: oriented to person Hosp A/P (1) SIRS (systemic inflammatory response syndrome) Code(s): R65.10 - SIRS OF NON-INFECTIOUS ORIGIN W/O ACUTE ORGAN DYSFUNCTION Status: Acute Plan: Continue Rocephin as outlined below, continue IVF's, monitor culture results (2) UTI (urinary tract infection) Status: Acute Plan: Await final Ucx results, continue Rocephin (3) Acute metabolic encephalopathy Code(s): G93.41 - METABOLIC ENCEPHALOPATHY Status: Acute Plan: Secondary to #1, see above (4) Dehydration Code(s): E86.0 - DEHYDRATION Status: Acute Plan: Continue IVF's (5) Down syndrome Code(s): Q90.9 - DOWN SYNDROME, UNSPECIFIED Status: Chronic Plan: Supportive mgmt - Plan continue antibiotics, 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
[2019-06-17] MEDS: cefTRIAXone\\ROCEPHIN 1 GM in Sodium Chloride 0.9% 100 ML IVPB SCH (23:49)
[2019-06-18] MEDS ORDERED: cefTRIAXone\\ROCEPHIN 1 GM in Sodium Chloride 0.9% 100 ML IVPB SCH
[2019-06-18] MEDS: Dextrose 5 %-0.45 % NaCl 1,000 ML IV SCH ×4 (05:38→23:43)
[2019-06-18 06:34] LABS: Hemoglobin 11.2 g/dL (14.0-18.0); Mean Corpuscular HGB CONC 30.6 g/dL (32.0-36.0); Mean Corpuscular Hemoglobin 28.8 pg (27.0-31.0); Mean Platelet Volume 7.8 fL (7.4-10.4); Platelet Count 296 thou/uL (130-400); RBC Distribution Width 15.5 % (11.5-14.5); Red Blood Cell (RBC) Count 3.89 mill/uL (4.70-6.10); White Blood Cell (WBC) Count 4.5 thou/uL (4.8-10.8)
[2019-06-18 06:39] LABS: Band 2 % (5-11); Eosinophils 6 % (0-10); Lymphocytes 30 % (21-51); MDiff Complete? YES; Monocytes 13 % (0-10); Neutrophil 49 % (42-75)
[2019-06-18 06:51] LABS: Anion Gap 11 mmol/L (10-20); BUN (Urea Nitrogen) 15 mg/dL (8.4-25.7); Calc. Creatinine Clearance 55 mL/min (70-130); Calcium 8.2 mg/dL (7.8-10.44); Carbon Dioxide 22 mmol/L (23-31); Chloride 111 mmol/L (98-107); Estimated GFR-MDRD 69; Glucose 103 mg/dL (80-115); Magnesium 1.9 mg/dL (1.6-2.6); Potassium 3.8 mmol/L (3.5-5.1); Sodium 140 mmol/L (136-145)
[2019-06-18] MEDS: Acetaminophen 325 MG TAB PO PRN (07:19)
--- NOTE | 2019-06-18 07:24 | HP ---
PRIMARY CARE PHYSICIAN: The patient is under the care of Dr. Layne at [facility]. CHIEF COMPLAINT: Altered mentation. HISTORY OF PRESENT ILLNESS: The patient is a 68-year-old male with Down syndrome and recent hospitalization for GI bleed, was brought in by EMS from [facility] due to altered mentation. The patient was admitted at this facility last month with GI bleeding. He was discharged to [facility] on May 24, 2019. He was found to have GI bleeding secondary to an anastomotic ulcer. During that admission, Reyes catheter was placed due to urinary retention. The family requested to leave the Reyes catheter in until the patient is evaluated by Urology as outpatient. At this time, there are no family at the bedside. History obtained from the ER chart. The details on altered mentation are unavailable. The patient is nonverbal at this time. He is not following any commands. His [place] Coma Scale was 7 on arrival. In the emergency room, it improved to around 10. He was responding to painful stimuli. His Reyes catheter was draining dark urine with clots. His blood pressure when EMS picked him up was 90/66 with heart rate of 70. He was placed on O2 nasal cannula. PAST MEDICAL HISTORY: 1. Recent hospitalization for GI bleed secondary to an anastomotic ulcer. 2. Chronic urinary retention, currently has Reyes catheter. 3. Recent aspiration pneumonia. 4. Benign prostatic hypertrophy. 5. Down syndrome. 6. Swallow dysfunction. 7. Severe protein calorie malnutrition. PAST SURGICAL HISTORY: Surgical procedure for glaucoma. He also had some surgery during his infancy. ALLERGIES: NO KNOWN DRUG ALLERGIES. CURRENT HOME MEDICATIONS: To be verified from the nursing facility. I am unable to verify at this time. SOCIAL HISTORY: As discussed above. The family requested do not intubate last admission. His medical power of insurance attorney and surrogate decision maker is the niece, Mili Lee and brother Melquiades Melara. REVIEW OF SYSTEMS: Cannot be obtained from the patient due to current mentation. FAMILY HISTORY: Brother with prostate cancer, hypertension, diabetes, and colon cancer. PHYSICAL EXAMINATION: VITAL SIGNS: As discussed above. His temperature in the ER was 98.1 with respirations of 18. GENERAL: A 68-year-old male with altered mentation. HEENT: Head, atraumatic and normocephalic. Sclerae anicteric. Dry mucous membranes. No oral lesion. NECK: Supple. No JVD appreciated. No carotid bruit. LUNGS: Showed diminished air entry at bilateral bases. HEART: S1, S2 present. Regular rate and rhythm. No rubs or gallops. ABDOMEN: Soft, nontender. Bowel sounds present. No guarding or rigidity. EXTREMITIES: No edema or calf tenderness. NEUROLOGIC AND PSYCHIATRIC: Could not be reliably done due to current mentation. SKIN: Warm and dry. LYMPH NODES: No palpable lymph nodes in the neck. PERIPHERAL VASCULAR: Radial pulses palpable bilaterally. MUSCULOSKELETAL: No joint swelling or tenderness. LABORATORY FINDINGS: WBC 4.7 with hemoglobin 9.4, hematocrit 30.1, platelet of 290. Chemistry showed sodium 148, potassium 4, chloride 117, bicarb 24, BUN 23, creatinine 1.20. LFTs in normal range. Albumin 2.0. Troponin was negative. BNP was 40. Lactic acid 1.1. Urinalysis showed greater than 50 wbc's with 2+ bacteria. IMAGING STUDIES: Chest x-ray by my review was negative for new infiltrate. Recent CT scan of the abdomen and pelvis by my review showed severe atrophic left kidney with changes consistent with chronic ureteropelvic junction obstruction. IMPRESSION: 1. Catheter-associated urinary tract infection. 2. Toxic metabolic encephalopathy secondary to #1. 3. Chronic urinary retention requiring Reyes catheter. 4. Recent hospitalization for aspiration pneumonia and gastrointestinal bleeding. 5. Down syndrome. 6. Swallow dysfunction. 7. Moderate protein calorie malnutrition. 8. Hypernatremia secondary to dehydration. 9. Chronic anemia. PLAN: The patient will be monitored as observation. We will continue empiric antibiotics for urinary tract infection. Urine cultures have been sent. We will try to obtain more information from the family. It is unclear when the Reyes catheter has been changed. He was do not intubate last admission. This needs to be verified with the family. We will verify home medications with [facility]. It is unclear whether the patient is still on Seroquel 300 mg at bedtime. We will recheck labs in a.m. Gentle IV hydration. Plan of care was discussed with the patient. We will discuss the plan with the family when they arrive. Job ID: [id number]
[2019-06-18] MEDS: Saccharomyces boulardii 250 MG CAP PO SCH (08:33)
[2019-06-18] MEDS: Senokot S 8.6-50 MG TAB PO SCH ×2 (08:34→21:14)
[2019-06-18] MEDS: Ketorolac Tromethamine 30 MG/ML VIAL IVP SCH ×3 (11:46→23:44)
[2019-06-18 15:04] VITALS: BMI 27.5
[2019-06-18] MEDS: cefTRIAXone\\ROCEPHIN 1 GM in Sodium Chloride 0.9% 100 ML IVPB SCH (23:43)
[2019-06-19] MEDS: Dextrose 5 %-0.45 % NaCl 1,000 ML IV SCH ×3 (05:22→19:50)
[2019-06-19] MEDS: Ketorolac Tromethamine 30 MG/ML VIAL IVP SCH ×4 (05:23→23:37)
[2019-06-19 05:29] LABS: #Basophils 0.1 thou/uL (0.0-0.2); #Eosinphils 0.3 thou/uL (0.0-0.7); #Lymphocytes 1.4 thou/uL (1.20-3.40); #Monocytes 0.6 thou/uL (0.11-0.59); %Basophils 1.2 % (0.0-1.0); %Eosinophils 6.2 % (0.0-10.0); %Lymphocytes 32.5 % (21.0-51.0); %Monocytes 14.7 % (0.0-10.0); %Neutrophils 45.4 % (42.0-75.0); Hemoglobin 10.7 g/dL (14.0-18.0); Mean Corpuscular HGB CONC 30.8 g/dL (32.0-36.0); Mean Corpuscular Hemoglobin 28.4 pg (27.0-31.0); Mean Corpuscular Volume 92.5 fL (78.0-98.0); Platelet Count 278 thou/uL (130-400); RBC Distribution Width 15.3 % (11.5-14.5); Red Blood Cell (RBC) Count 3.78 mill/uL (4.70-6.10); White Blood Cell (WBC) Count 4.3 thou/uL (4.8-10.8)
[2019-06-19 05:53] LABS: Anion Gap 12 mmol/L (10-20); BUN (Urea Nitrogen) 14 mg/dL (8.4-25.7); Calc. Creatinine Clearance 52 mL/min (70-130); Calcium 8.3 mg/dL (7.8-10.44); Carbon Dioxide 24 mmol/L (23-31); Chloride 108 mmol/L (98-107); Estimated GFR-MDRD 65; Glucose 91 mg/dL (80-115); Potassium 3.6 mmol/L (3.5-5.1); Sodium 140 mmol/L (136-145)
[2019-06-19] MEDS: Senokot S 8.6-50 MG TAB PO SCH ×2 (08:43→20:37)
[2019-06-19] MEDS: Saccharomyces boulardii 250 MG CAP PO SCH (08:43)
[2019-06-19] MEDS: Finasteride 5 MG TAB PO SCH (20:36)
[2019-06-19] MEDS: Famotidine 20 MG TAB PO SCH (20:36)
[2019-06-19] MEDS: Tamsulosin HCl 0.4 MG CAP PO SCH (20:37)
[2019-06-19] MEDS: Pantoprazole 40 MG GRANULES PACKET PO SCH (20:38)
[2019-06-19] MEDS: cefTRIAXone\\ROCEPHIN 1 GM in Sodium Chloride 0.9% 100 ML IVPB SCH (23:40)
[2019-06-20] MEDS: Ketorolac Tromethamine 30 MG/ML VIAL IVP SCH ×3 (06:21→17:14)
[2019-06-20] MEDS: Lactinex Tablet PO SCH (09:00)
[2019-06-20] MEDS: Famotidine 20 MG TAB PO SCH (09:00)
[2019-06-20] MEDS: Pantoprazole 40 MG GRANULES PACKET PO SCH ×2 (09:00→20:40)
[2019-06-20] MEDS: Saccharomyces boulardii 250 MG CAP PO SCH (09:00)
[2019-06-20] MEDS: Senokot S 8.6-50 MG TAB PO SCH ×2 (09:00→20:40)
[2019-06-20] MEDS: Docusate 100 MG CAP PO SCH (09:01)
[2019-06-20] MEDS: Loratadine 10 MG TAB PO SCH (09:01)
[2019-06-20] MEDS: Multivit, Therapeutic 1 TAB PO SCH (09:01)
[2019-06-20] MEDS: Polyethylene Glycol 3350 17 GM Packet PO SCH (09:06)
[2019-06-20] MEDS: Dextrose 5 %-0.45 % NaCl 1,000 ML IV SCH (15:52)
[2019-06-20] MEDS: Finasteride 5 MG TAB PO SCH (20:40)
[2019-06-20] MEDS: Tamsulosin HCl 0.4 MG CAP PO SCH (20:40)
[2019-06-20] MEDS: cefTRIAXone\\ROCEPHIN 1 GM in Sodium Chloride 0.9% 100 ML IVPB SCH (23:27)
[2019-06-21] MEDS: Pantoprazole 40 MG GRANULES PACKET PO SCH (08:19)
[2019-06-21] MEDS: Loratadine 10 MG TAB PO SCH (08:19)
[2019-06-21] MEDS: Polyethylene Glycol 3350 17 GM Packet PO SCH (08:19)
[2019-06-21] MEDS: Multivit, Therapeutic 1 TAB PO SCH (08:19)
[2019-06-21] MEDS: Lactinex Tablet PO SCH (08:19)
[2019-06-21] MEDS: Saccharomyces boulardii 250 MG CAP PO SCH (08:19)
[2019-06-21] MEDS: Docusate 100 MG CAP PO SCH (08:19)
[2019-06-21] MEDS: Senokot S 8.6-50 MG TAB PO SCH (08:20)
--- NOTE | 2019-06-21 12:03 | PQF ---
CLINICAL DOCUMENTATION IMPROVEMENT CLARIFICATION FORM: ICD-10 Updated PLEASE DO AN ADDENDUM TO THE PROGRESS NOTE WITH ANY DOCUMENTATION UPDATES OR ADDITIONS AND CARRY THROUGH TO DC SUMMARY. THANK YOU. DATE: 06/21/2019 ATTN: Dr. Layne Please exercise your independent, professional judgment in responding to the clarification form. Clinical indicators are provided on the bottom of this form for your review Please check appropriate box(es): [ ] Sepsis due to UTI due to tong catheter. [ ] Sepsis due to UTI not due to tong catheter. [ ] Sepsis due to other. [ y ] Localized infection without sepsis [ ] Other diagnosis [ ] Unable to determine In addition, please specify: Present on Admission (POA): [ y ] Yes [ ] No [ ] Unable to determine For continuity of documentation, please document condition throughout progress notes and discharge summary. Thank You. CLINICAL INDICATORS - SIGNS / SYMPTOMS / LABS / RESULTS AND LOCATION IN MR ER Nursing [id number]: Urine collection Male: Came with Tong [facility] ER Record 06/16: Diagnosis: AMS Dehydration , UTI H&P 06/17: His GCS was 7 on arrival in the ER, it improved to around 10. His BP when EMS picked him up was 90/66 with heart rate of 70. WBC 4.7 Urinalysis showed greater than 50 wbc's with 2+ bacteria. Impression: Catheter-associated urinary tract infection. Toxic metabolic encephalopathy secondary to #1 PN 06/19: BC + UTI RISKS: H&P 06/17: Catheter-associated UTI. Chronic urinary retention requiring Tong catheter. Down syndrome. Moderate protein-calorie malnutrition TREATMENT: MAR: Order 06/17: IV Rocephin 1 gm in NS 100mls Thank you, Kiki (This form is maintained as a part of the permanent medical record) 2014 [employer]. All Rights Reserved Kiki William RN, BSN [email or web address] Office: [phone] [facility]
[2019-06-21 13:35] VITALS: BP 101/71; TEMP 98.6
--- NOTE | 2019-06-22 19:27 | DIS ---
DATE OF ADMISSION: 06/17/2019 DATE OF DISCHARGE: 06/21/2019 ADMITTING DIAGNOSES: 1. Catheter associated urinary tract infection. 2. Toxic metabolic encephalopathy secondary to #1. 3. Urinary retention with Reyes catheter. 4. Recent hospitalization for aspiration pneumonia and GI bleeding. 5. Down syndrome. 6. Swallow dysfunction. 7. Moderate protein calorie malnutrition. 8. Hypernatremia secondary to dehydration and chronic anemia. FINAL DIAGNOSES: 1. Urinary tract infection, which is catheter associated. 2. No evidence of sepsis. 3. Toxic metabolic encephalopathy secondary to #1, improved. 4. Down syndrome. 5. Chronic anemia. 6. Moderate protein calorie malnutrition. 7. Hypernatremia, improved. BRIEF SUMMARY OF HOSPITAL COURSE: Mr. Melara is a 68-year-old male with past medical history of Down syndrome, was found to have change in mental status. The patient had decreased mentation. He was found to have urinary tract infection. He was started on IV antibiotics with Rocephin. His mentation improved. He was started on diet and he started to eat better. His blood culture revealed no growth. Urine culture revealed growth of Proteus mirabilis and E coli sensitive to Rocephin. E coli is not sensitive to quinolones, so probably he will be given nitrofurantoin. His sodium came down from 148 to 140. In view of improvement, the patient is being discharged [facility] to [facility]. At the time of discharge, he was stable. His vital signs stable. Lungs clear. Hear sounds regular. Abdomen is soft and nontender. Bowel sounds present. DISCHARGE MEDICATIONS: 1. Vasotec 10 mg daily. 2. Multivitamin daily. 3. Seroquel 300 mg at bedtime. 4. Finasteride 5 mg daily. 5. MiraLAX 17 g daily. 6. Flomax 0.4 mg at bedtime. 7. Docusate sodium 100 mg daily. 8. Pepcid 20 b.i.d. 9. Floranex one daily. 10. Zofran p.r.n. 11. Cipro 500 b.i.d. for 10 days. 12. Macrobid 100 b.i.d. also for 10 days. 13. Calcium carbonate p.r.n. 14. Senokot two tablets b.i.d. 15. Tylenol p.r.n. FOLLOWUP: The patient will be followed up in [facility]. Job ID: [id number]
== END 2019-06-21 13:25 | DRG 698 ==
LOC: ERS 20:57 → T4-A 23:35 → OBSVTOIN 06-17 18:24
PROVIDERS: ADMIT Internal Medicine; ATTEND Internal Medicine
DX: T83.511A Infection and inflammatory reaction due to indwelling urethral catheter, initial encounter (principal); G92 Toxic encephalopathy; E44.0 Moderate protein-calorie malnutrition; E87.0 Hyperosmolality and hypernatremia; Z66 Do not resuscitate; R33.9 Retention of urine, unspecified; N39.0 Urinary tract infection, site not specified; N40.0 Benign prostatic hyperplasia without lower urinary tract symptoms; Y84.6 Urinary catheterization as the cause of abnormal reaction of the patient, or of later complication, without mention of misadventure at the time of the procedure; E86.0 Dehydration; D64.89 Other specified anemias; K21.9 Gastro-esophageal reflux disease without esophagitis; Q90.9 Down syndrome, unspecified; Z79.899 Other long term (current) drug therapy; Z68.27 Body mass index [BMI] 27.0-27.9, adult
CPT/HCPCS: 36415; 71045; 80048; 80053; 81003; 81015; 83605; 83735; 83880; 84484; 85007; 85025; 85027; 87040; 87077; 87086; 87149; 87186; 96361; 96365; J0696; J1885; J3490

== ENCOUNTER 2019-06-27 11:23 | Inpatient (IN) | payer MEDICARE, MEDICAID ==
[2019-06-27] MEDS ORDERED: Piperacillin/Tazobactam 4.5 GM VIAL ONE (11:42)
[2019-06-27 11:45] LABS: Bilirubin Negative (Negative); Blood, Urine Moderate (Negative); Glucose, Urine (Dipstick) Negative (Negative); Leukocyte Negative (Negative); Nitrite Negative (Negative); Protein, Urine (Dipstick) 30 mg/dL (Neg-Trace); Urobilinogen 0.2 mg/dL (Less than 2)
[2019-06-27 11:47] LABS: #Basophils 0.1 thou/uL (0.0-0.2); #Monocytes 0.6 thou/uL (0.11-0.59); #Neutrophils 12.9 thou/uL (1.40-6.50); %Basophils 0.4 % (0.0-1.0); %Eosinophils 0.2 % (0.0-10.0); %Lymphocytes 17.9 % (21.0-51.0); %Monocytes 3.9 % (0.0-10.0); %Neutrophils 77.8 % (42.0-75.0); Hemoglobin 12.9 g/dL (14.0-18.0); Mean Corpuscular HGB CONC 31.2 g/dL (32.0-36.0); Mean Corpuscular Hemoglobin 29.1 pg (27.0-31.0); Mean Corpuscular Volume 93.4 fL (78.0-98.0); Mean Platelet Volume 8.5 fL (7.4-10.4); Platelet Count 280 thou/uL (130-400); RBC Distribution Width 16.3 % (11.5-14.5); Red Blood Cell (RBC) Count 4.42 mill/uL (4.70-6.10); White Blood Cell (WBC) Count 16.6 thou/uL (4.8-10.8)
[2019-06-27 11:48] LABS: Clarity Cloudy (Clear)
--- NOTE | 2019-06-27 11:52 | RAD ---
Exam: Chest one view: HISTORY: Dyspnea COMPARISON: 06/16/2019 FINDINGS: Fairly extensive bilateral somewhat confluent alveolar parenchymal changes in the lung bases more so on the left lower lobe and lung base with possible small left pleural effusion. Mild bilateral vascular congestion. No significant cardiomegaly. IMPRESSION: Fairly extensive bibasilar parenchymal changes concerning for bilateral lower lobe pneumonia. Correla te clinically. Follow-up for complete clearing.
[2019-06-27 11:59] LABS: Bacteria/HPF 2+ HPF (None Seen); Renal Epithelial 0-3 HPF (None Seen); Squamous Epithelial 0-3 HPF (0-3); Transitional Epithelial 0-3 HPF (None Seen); WBC/HPF 0-3 HPF (0-3)
[2019-06-27 12:22] LABS: ALT (SGPT) 9 U/L (8-55); AST (SGOT) 26 U/L (5-34); Albumin 3.2 g/dL (3.4-4.8); Alkaline Phosphatase 86 U/L (40-110); Anion Gap 19 mmol/L (10-20); BUN (Urea Nitrogen) 27 mg/dL (8.4-25.7); Bilirubin, Total 0.5 mg/dL (0.2-1.2); CK (CPK) 15 U/L (30-200); Calc. Creatinine Clearance 0 mL/min (70-130); Calcium 8.8 mg/dL (7.8-10.44); Carbon Dioxide 21 mmol/L (23-31); Chloride 112 mmol/L (98-107); Estimated GFR-MDRD 40; Globulin 4.4 g/dL (2.4-3.5); Glucose 173 mg/dL (80-115); Potassium 4.7 mmol/L (3.5-5.1); Protein, Total 7.6 g/dL (5.8-8.1); Sodium 147 mmol/L (136-145)
[2019-06-27] MEDS ORDERED: Acetaminophen 325 MG Suppository ONE (12:41)
[2019-06-27] MEDS ORDERED: Acetaminophen 650 MG Suppository ONE (12:41)
[2019-06-27 15:02] LABS: Lactic Acid 3.8 mmol/L (0.5-2.2)
[2019-06-27] MEDS ORDERED: Acetaminophen 325 MG TAB PO PRN ×2 (16:52→19:04)
[2019-06-27] MEDS ORDERED: Ondansetron ODT 4 MG TAB SL PRN (16:52)
[2019-06-27] MEDS ORDERED: Ondansetron PF 4 MG/2 ML Vial IVP PRN (16:52)
[2019-06-27] MEDS ORDERED: Calcium Carbonate 500 MG ChewTAB PO PRN ×2 (18:31→19:06)
[2019-06-27] MEDS ORDERED: Bisacodyl 10 MG SUPP PR PRN ×2 (18:31→19:06)
[2019-06-27] MEDS ORDERED: Mag-Al 1200 mg/1200 mg/30 ML UDCUP PO PRN ×2 (18:31→19:06)
[2019-06-27] MEDS ORDERED: guaiFENesin 100 MG/5 ML UDCUP PO PRN (18:33)
[2019-06-27] MEDS ORDERED: Calamine/Zinc Oxide 177 ML LOTION TP PRN (18:55)
[2019-06-27] MEDS ORDERED: Piperacillin/Tazobactam 3.375 GM in Sodium Chloride 0.9% 100 ML IVPB SCH (19:00)
[2019-06-27] MEDS: Dextrose 5 %-0.45 % NaCl 1,000 ML IV SCH (19:04)
[2019-06-27] MEDS ORDERED: Diabetic Tussin 200 MG/10 ML UDCUP PO PRN (19:08)
[2019-06-27] MEDS ORDERED: traMADol HCl 50 MG TAB PO SCH (19:15)
[2019-06-27] MEDS ORDERED: Ondansetron ODT 4 MG TAB PO PRN (19:16)
--- NOTE | 2019-06-27 20:12 | HP ---
CHIEF COMPLAINT: Difficulty breathing, fever, hypotension. HISTORY OF PRESENT ILLNESS: Mr. Melara is a 68-year-old white male with past medical history of Down syndrome, recent admissions for urinary tract infection and previous admissions for aspiration pneumonia, was found to have cough with respiratory difficulty with breathing problem. He also has a fever of 101.5. The patient has been not eating well for last one day. The patient was also hypotensive with systolic of 90 in the [facility]. The patient was sent to the hospital for evaluation. In the ER, the patient was evaluated and found to have bilateral pneumonia with multifocal areas and hypotension and hypoxia, so the patient was given Zosyn and vancomycin, given IV fluid bolus as well, and admitted IMCU for closer monitoring. The patient is DNR as per the family and [facility]. Currently, his blood pressure is better. He is not agitated. He is on high-flow oxygen; he is not hypoxic though. PAST MEDICAL HISTORY: 1. Down syndrome. 2. History of aspiration pneumonia. 3. History of urinary tract infection, which is a catheter associated. 4. History of chronic urinary retention. 5. History of benign prostatic hypertrophy. 6. Dysphagia. 7. Severe protein calorie malnutrition. PAST SURGICAL HISTORY: Surgery for glaucoma. ALLERGIES: NKDA. CURRENT MEDICATIONS: The patient is on, 1. Tylenol p.r.n. 2. Magnesium. 3. Maalox p.r.n. 4. Dulcolax p.r.n. 5. Zyrtec 10 mg daily. 6. Cipro 500 b.i.d. 7. Docusate sodium 100 mg daily. 8. Pepcid 20 mg b.i.d. 9. Proscar 5 mg at bedtime. 10. Guaifenesin p.r.n. 11. Floranex daily. 12. Multivitamin daily. 13. Macrobid 100 b.i.d. 14. Zofran p.r.n. 15. MiraLAX 17 g daily. 16. Seroquel 300 mg at bedtime. 17. Flomax 0.4 mg daily. 18. Tramadol 50 b.i.d. q.6 p.r.n. 19. Valtrex 1 g t.i.d. for herpes zoster. FAMILY HISTORY: Nothing contributory. SOCIAL HISTORY: The patient lives at the [facility]. The patient is nonverbal and noncommunicative. PHYSICAL EXAMINATION: VITAL SIGNS: Temperature 101.2, pulse 92, respirations 25, and blood pressure initially 88/55, now is 117/60. HEENT: Head, normal and atraumatic. Pupils are equal and reactive to light. Nasopharynx is pale and dry. Hard and soft palate; no lesions. NECK: Supple. No JVD. LUNGS: Breath sounds diminished bilaterally. Crackles present bilaterally at bases. HEART: Regular. ABDOMEN: Soft. No distention. No tenderness. Normal bowel sounds present. SKIN: Turgor decreased. There is an erythematous maculopapular lesions present on the side of the chest extending front to the back. LABORATORY DATA: CBC shows WBC 16, hemoglobin 12, hematocrit 41, platelets 318. Metabolic panel; sodium 147, potassium 4.7, chloride 112, CO2 of 21, BUN 27, creatinine 0.7, glucose 172. Lactic acid 3.1. Urinalysis; bacteria 2+ with wbc less than 3. Chest x-ray shows bibasilar parenchymal changes concerning for bilateral lower lobe pneumonia. EKG shows sinus tachycardia, no acute ST-T changes seen. ASSESSMENT: 1. Pneumonia, bilateral, both lower lobes. 2. Leukocytosis and fever, rule out sepsis. 3. Hypotension with acute kidney injury. 4. Metabolic encephalopathy. 5. Protein calorie malnutrition, severe. 6. Chronic anemia. 7. Down syndrome. 8. History of benign prostatic hyperplasia with urinary retention. 9. Herpes zoster. PLAN: 1. Vital signs q.4 hours. 2. Activities as tolerated. 3. Allergies, NKDA. 4. Diet, regular. 5. IV fluids, D5 half at 100 mL/h. 6. Zosyn 3.375 g IV piggyback q.6. 7. Continue [facility] medications. 8. Tylenol p.r.n. Geodon p.r.n. Valtrex to continue. Job ID: [id number]
[2019-06-27] MEDS: Finasteride 5 MG TAB PO SCH (20:47)
[2019-06-27] MEDS: Tamsulosin HCl 0.4 MG CAP PO SCH (20:47)
[2019-06-27] MEDS: valACYclovir 500 MG TAB PO SCH (20:48)
[2019-06-27] MEDS ORDERED: Finasteride 5 MG TAB PO SCH (21:00)
[2019-06-27] MEDS ORDERED: Famotidine 20 MG TAB PO SCH (21:00)
[2019-06-28] MEDS: traMADol HCl 50 MG TAB PO SCH ×5 (01:09→23:18)
[2019-06-28] MEDS: Piperacillin/Tazobactam 3.375 GM in Sodium Chloride 0.9% 100 ML IVPB SCH ×4 (01:32→19:51)
[2019-06-28 04:19] LABS: #Lymphocytes 1.1 thou/uL (1.20-3.40); #Monocytes 0.7 thou/uL (0.11-0.59); #Neutrophils 12.1 thou/uL (1.40-6.50); %Eosinophils 0.1 % (0.0-10.0); %Monocytes 5.2 % (0.0-10.0); %Neutrophils 86.6 % (42.0-75.0); Hemoglobin 10.1 g/dL (14.0-18.0); Mean Corpuscular HGB CONC 32.1 g/dL (32.0-36.0); Mean Corpuscular Hemoglobin 30.2 pg (27.0-31.0); Mean Corpuscular Volume 94.1 fL (78.0-98.0); Mean Platelet Volume 8.4 fL (7.4-10.4); Platelet Count 194 thou/uL (130-400); RBC Distribution Width 15.8 % (11.5-14.5); Red Blood Cell (RBC) Count 3.34 mill/uL (4.70-6.10); White Blood Cell (WBC) Count 13.9 thou/uL (4.8-10.8)
[2019-06-28 04:46] LABS: Anion Gap 12 mmol/L (10-20); BUN (Urea Nitrogen) 26 mg/dL (8.4-25.7); Calc. Creatinine Clearance 36 mL/min (70-130); Calcium 8.3 mg/dL (7.8-10.44); Carbon Dioxide 23 mmol/L (23-31); Chloride 114 mmol/L (98-107); Estimated GFR-MDRD 47; Glucose 175 mg/dL (80-115); Potassium 4.1 mmol/L (3.5-5.1); Sodium 145 mmol/L (136-145)
[2019-06-28] MEDS: Dextrose 5 %-0.45 % NaCl 1,000 ML IV SCH (05:20)
[2019-06-28] MEDS ORDERED: Famotidine 20 MG TAB PO SCH (09:00)
[2019-06-28] MEDS ORDERED: Loratadine 10 MG TAB PO SCH (09:00)
[2019-06-28] MEDS ORDERED: Docusate 100 MG CAP PO SCH (09:00)
[2019-06-28] MEDS: Polyethylene Glycol 3350 17 GM Packet PO SCH (09:17)
[2019-06-28] MEDS: valACYclovir 500 MG TAB PO SCH ×3 (09:17→22:17)
[2019-06-28] MEDS: Floranex Packet PO SCH (09:17)
[2019-06-28] MEDS: Loratadine 10 MG TAB PO SCH (09:17)
[2019-06-28] MEDS: Multivit, Therapeutic 1 TAB PO SCH (09:17)
[2019-06-28] MEDS: Lactinex Tablet PO SCH (09:17)
[2019-06-28] MEDS: Docusate 100 MG CAP PO SCH (09:17)
[2019-06-28] MEDS ORDERED: Sodium Chloride 0.9% 500 ML IV SCH (10:45)
[2019-06-28] MEDS: Sodium Chloride 0.9% 1,000 ML IV SCH ×2 (10:46→19:51)
--- NOTE | 2019-06-28 15:11 | CON ---
DATE OF CONSULTATION: HISTORY OF PRESENT ILLNESS: Mr. Melara is a 68-year-old male with learning disability. He lives in a [facility]. He presented with hypoxemia. Chest x-ray shows bilateral lower lobe alveolar infiltrate consistent with pneumonia. PAST MEDICAL HISTORY: Remarkable for; 1. Down syndrome. 2. Pneumonia. 3. Urinary tract infections. 4. History of BPH. 5. History of dysphagia. 6. History of malnutrition. 7. History of glaucoma surgery. SOCIAL HISTORY: He is a nonsmoker and nondrinker [facility]. REVIEW OF SYSTEMS: Not obtainable. PHYSICAL EXAMINATION: GENERAL: He does not arouse with sternal rub. He appears comfortable. He has his roxanne bear in bed with him. VITAL SIGNS: His heart rate in the 40s, blood pressure is 101/67, respiratory rates in the teens. HEAD AND NECK: Remarkable only for Down facies. LUNGS: Remarkable for rhonchi in both lung bases. HEART: Regular rhythm. ABDOMEN: Soft. EXTREMITIES: Without asymmetry or edema. NEUROLOGIC: Cannot be tested. LABORATORY DATA: White count 13.9, hemoglobin 10.1, platelets 194. Sodium 145, potassium 4.1, chloride 114, bicarb 23, BUN 26, creatinine 1.49. IMPRESSION: 1. Aspiration pneumonia. 2. Intravascular volume depletion. 3. Advanced Down's. I agree with IV antimicrobial therapy. Continue supportive care. Job ID: [id number]
[2019-06-28] MEDS ORDERED: Sodium Chloride 0.9% 1,000 ML IV SCH (18:15)
[2019-06-28] MEDS ORDERED: DOPamine 400 MG/D5W 250 ML 250 ML IVPB SCH (22:00)
[2019-06-28] MEDS: Tamsulosin HCl 0.4 MG CAP PO SCH (22:17)
[2019-06-28] MEDS: Finasteride 5 MG TAB PO SCH ×2 (22:17→23:16)
[2019-06-28] MEDS: Famotidine 20 MG TAB PO SCH (22:17)
[2019-06-28] MEDS ORDERED: valACYclovir 500 MG TAB PO SCH (23:30)
[2019-06-28] MEDS ORDERED: Tamsulosin HCl 0.4 MG CAP PO SCH (23:30)
[2019-06-29] MEDS: Piperacillin/Tazobactam 3.375 GM in Sodium Chloride 0.9% 100 ML IVPB SCH ×3 (01:52→17:41)
[2019-06-29 05:04] LABS: #Lymphocytes 1.2 thou/uL (1.20-3.40); #Monocytes 0.9 thou/uL (0.11-0.59); #Neutrophils 8.6 thou/uL (1.40-6.50); %Basophils 0.3 % (0.0-1.0); %Eosinophils 0.2 % (0.0-10.0); %Lymphocytes 11.1 % (21.0-51.0); %Monocytes 8.1 % (0.0-10.0); %Neutrophils 80.3 % (42.0-75.0); Hemoglobin 9.7 g/dL (14.0-18.0); Mean Corpuscular HGB CONC 30.2 g/dL (32.0-36.0); Mean Corpuscular Hemoglobin 28.4 pg (27.0-31.0); Mean Corpuscular Volume 94.1 fL (78.0-98.0); Mean Platelet Volume 8.4 fL (7.4-10.4); Platelet Count 222 thou/uL (130-400); RBC Distribution Width 15.7 % (11.5-14.5); Red Blood Cell (RBC) Count 3.42 mill/uL (4.70-6.10); White Blood Cell (WBC) Count 10.7 thou/uL (4.8-10.8)
[2019-06-29 05:20] LABS: Anion Gap 10 mmol/L (10-20); BUN (Urea Nitrogen) 18 mg/dL (8.4-25.7); Calc. Creatinine Clearance 48 mL/min (70-130); Calcium 7.6 mg/dL (7.8-10.44); Carbon Dioxide 22 mmol/L (23-31); Chloride 117 mmol/L (98-107); Estimated GFR-MDRD 64; Glucose 99 mg/dL (80-115); Potassium 3.7 mmol/L (3.5-5.1); Sodium 145 mmol/L (136-145)
[2019-06-29] MEDS ORDERED: Sodium Chloride 0.9% 500 ML IV SCH (05:45)
[2019-06-29] MEDS ORDERED: Acetaminophen 650 MG Suppository PR SCH (06:00)
[2019-06-29] MEDS: Sodium Chloride 0.9% 1,000 ML IV SCH ×2 (06:12→11:18)
[2019-06-29] MEDS: traMADol HCl 50 MG TAB PO SCH ×4 (06:12→18:03)
--- NOTE | 2019-06-29 08:03 | PRG ---
DATE OF SERVICE: 06/29/2019 SUBJECTIVE: Renan Melara remains stable hemodynamically. He did drop his pressure briefly this morning. Dopamine was ordered. I suspect he is still intravascularly dry, so I ordered a fluid bolus and recommended discontinuation of the dopamine. OBJECTIVE: VITAL SIGNS: Blood pressure at 0700 hours is 96/63, heart rate in the 70s, temperature is 100.2. LUNGS: Remarkable for rhonchi bilaterally. HEART: Regular rhythm. ABDOMEN: Soft. White count 10.7, hemoglobin 9.7, platelets 222. Sodium 145, potassium 3.7, chloride 117, bicarb 22, BUN 18, and creatinine 1.14. IMPRESSION: 1. Pneumonia most likely aspiration mediated. 2. Intravascular volume depletion secondary to being bedridden in the alf with an inadequate intake of liquids. 3. He could be transferred out of the intermediate care unit. He is reportedly a do not resuscitate patient. Efforts should be made to continue antibiotics and continue with supportive care. I would not recommend placing him on pressors given that his predominant problem is intravascular volume depletion. He needs to be treated with IV fluids if his blood pressure is noted to fall in my opinion. We will follow from a distance. Job ID: [id number]
[2019-06-29] MEDS: Floranex Packet PO SCH (08:36)
[2019-06-29] MEDS: Multivit, Therapeutic 1 TAB PO SCH (08:36)
[2019-06-29] MEDS: valACYclovir 500 MG TAB PO SCH ×3 (08:36→21:57)
[2019-06-29] MEDS: Loratadine 10 MG TAB PO SCH (08:37)
[2019-06-29] MEDS: Lactinex Tablet PO SCH (08:37)
[2019-06-29] MEDS: Polyethylene Glycol 3350 17 GM Packet PO SCH (08:37)
[2019-06-29] MEDS: Docusate 100 MG CAP PO SCH (08:37)
[2019-06-29] MEDS ORDERED: Sodium Chloride 0.9% 1,000 ML IV SCH (11:15)
--- NOTE | 2019-06-29 12:30 | PDOC.PALCO ---
Palliative Care Consult - Consult Details Requesting Physician: Dr Layne Reason for Consult: goals of care, complex decision-making Family Members Present: Niece, "Jen" who is MPOA with her father - Pertinent HPI 68 year old male with Downs Syndrome. Until a little over a year ago was residing with family, favorite thing to do was play his guitar. At that time was independent in eating and base ADL. He had a CVA and required [facility] after the cerebral insult. Family state continued decline with frequent infections and decline in previous cognitive baseline. Resident of [facility] in [place]. He was noted to have cough, respiratory difficulty, fever of 101, decrease in appetite and systolic hypotension in the care home. EMS transport to [facility] and after evaluation in the emergency room he was admitted to IMCU for management of pneumonia, encepphalopathy, anemia, hypotension - Pertinent PMH Down Syndrome, Aspiration pnuemonia, UTI, dysphagia, history of CVA - Social History Smoking Status: Never smoker Smoking: no tobacco exposure Alcohol Use: none Drug Use History: none Living Situation: care home resident - Medications MAR Reviewed: Yes - Allergies Allergies/Adverse Reactions: Allergies Allergy/AdvReac Type Severity Reaction Status Date / Time No Known Allergies Allergy Verified 06/17/19 02:32 - Subjective On bipap, resting. Moves hands but is overall non responsive at time of assessment. Reyes in place. Family at bedside - Objective Vital Signs: Vital Signs - Most Recent Temp Pulse Resp BP Pulse Ox 98.6 F 100 06/29/19 11:11 06/29/19 07:41 Palliative Performance Scale: 30 - Physical Exam Constitutional: mild distress HEENT: moist MMs Deviation from normal: Diminished Cardiovascular: irregular Gastrointestinal: soft, positive bowel sounds Musculoskeletal: pulses present Neurological: normal sensation Deviation from normal: lethargic Skin: normal turgor Deviation from normal: Pallor - Problem List (1) Palliative care encounter Code(s): Z51.5 - ENCOUNTER FOR PALLIATIVE CARE Current Visit: Yes Status: Acute (2) Physical deconditioning Code(s): R53.81 - OTHER MALAISE Current Visit: Yes Status: Acute (3) Acute metabolic encephalopathy Code(s): G93.41 - METABOLIC ENCEPHALOPATHY Current Visit: No Status: Acute (4) Aspiration pneumonitis Code(s): J69.0 - PNEUMONITIS DUE TO INHALATION OF FOOD AND VOMIT Current Visit : No Status: Acute (5) Down syndrome Code(s): Q90.9 - DOWN SYNDROME, UNSPECIFIED Current Visit: No Status: Chronic (6) Swallowing dysfunction Code(s): R13.10 - DYSPHAGIA, UNSPECIFIED Current Visit: No Status: Chronic - Plan/Recommendations Plan: Brief life review with patient Niece. States patient is one of 17 children and up until a little over a year ago was living with her and her father, playing his guitar. After CVA became a resident of a [facility] facility as he required a higher lever of care. She states that her grandmother, patients mother never wished for her son to be on extensive life saving measures. She states she wishes for him to be comfortable and avoid continued hospitalizations. *Niece will provide paperwork for MPOA *Once paper work is obtained Palliative Care will proceed with placing hospice consult with CM *Determine how patient responds with decreased O2 support to determine capacity to return to [facility] with Hospice verses GIP/Inpatient *Support family with difficult decision in relation to goals of care for patient , seeking comfort verses frequent hospitalizations treating recurrent medical needs [80] minutes spent on this encounter with >50% of the time in counseling and coordination of care. Thank you for this very appropriate consult.
[2019-06-29] MEDS ORDERED: Acetaminophen 650 MG Suppository PR PRN (20:01)
[2019-06-29] MEDS: Famotidine 20 MG TAB PO SCH (21:57)
[2019-06-29] MEDS: Tamsulosin HCl 0.4 MG CAP PO SCH (21:57)
[2019-06-30] MEDS: Piperacillin/Tazobactam 3.375 GM in Sodium Chloride 0.9% 100 ML IVPB SCH ×5 (00:11→17:08)
[2019-06-30] MEDS: Sodium Chloride 0.9% 1,000 ML IV SCH ×3 (00:12→11:29)
[2019-06-30] MEDS: traMADol HCl 50 MG TAB PO SCH ×4 (00:12→17:09)
[2019-06-30 06:00] LABS: Anion Gap 11 mmol/L (10-20); BUN (Urea Nitrogen) 14 mg/dL (8.4-25.7); Calc. Creatinine Clearance 59 mL/min (70-130); Calcium 7.7 mg/dL (7.8-10.44); Carbon Dioxide 17 mmol/L (23-31); Chloride 119 mmol/L (98-107); Estimated GFR-MDRD 76; Glucose 80 mg/dL (80-115); Potassium 4.6 mmol/L (3.5-5.1); Sodium 142 mmol/L (136-145)
[2019-06-30 07:16] LABS: #Eosinphils 0.1 thou/uL (0.0-0.7); #Lymphocytes 1.5 thou/uL (1.20-3.40); #Monocytes 0.5 thou/uL (0.11-0.59); #Neutrophils 4.8 thou/uL (1.40-6.50); %Basophils 0.2 % (0.0-1.0); %Eosinophils 1.8 % (0.0-10.0); %Lymphocytes 21.6 % (21.0-51.0); %Monocytes 6.7 % (0.0-10.0); %Neutrophils 69.7 % (42.0-75.0); Hemoglobin 9.7 g/dL (14.0-18.0); Mean Corpuscular HGB CONC 31.1 g/dL (32.0-36.0); Mean Corpuscular Hemoglobin 29.3 pg (27.0-31.0); Mean Corpuscular Volume 94.4 fL (78.0-98.0); Mean Platelet Volume 8.2 fL (7.4-10.4); Platelet Count 221 thou/uL (130-400); RBC Distribution Width 15.8 % (11.5-14.5); Red Blood Cell (RBC) Count 3.32 mill/uL (4.70-6.10); White Blood Cell (WBC) Count 6.8 thou/uL (4.8-10.8)
[2019-06-30] MEDS: Lactinex Tablet PO SCH (09:11)
[2019-06-30] MEDS: Floranex Packet PO SCH (09:11)
[2019-06-30] MEDS: valACYclovir 500 MG TAB PO SCH ×3 (09:11→21:24)
[2019-06-30] MEDS: Multivit, Therapeutic 1 TAB PO SCH (09:11)
[2019-06-30] MEDS: Docusate 100 MG CAP PO SCH (09:11)
[2019-06-30] MEDS: Loratadine 10 MG TAB PO SCH (09:11)
[2019-06-30] MEDS: Polyethylene Glycol 3350 17 GM Packet PO SCH (09:11)
--- NOTE | 2019-06-30 15:19 | PRG ---
DATE OF SERVICE: 06/30/2019 SERVICE: Pulmonary Medicine. INTERVAL HISTORY: The patient is doing fine from respiratory standpoint. Breathing comfortably. He is on room air. Otherwise, there has been no interval change to his condition. PHYSICAL EXAMINATION: VITAL SIGNS: Afebrile, pulse 83, blood pressure 90/64, respirations 20, saturation 96%, currently on room air. GENERAL: The patient is awake and alert, in no apparent distress. LUNGS: Decent air entry. Crackles are present bilaterally. No prolonged expiratory phase or wheezing is appreciated. HEART: Normal rate, regular. ABDOMEN: Soft, nontender, nondistended. Bowel sounds are positive. MUSCULOSKELETAL: No cyanosis or clubbing. There is no pitting in the bilateral lower extremities. NEUROLOGIC: Grossly nonfocal. LABORATORY DATA: WBC 6.8, hemoglobin 9.7, platelets 221,000. Creatinine 0.98. Basic metabolic profile is otherwise unremarkable/stable. Urinalysis is unremarkable. Urine culture is growing Proteus mirabilis. Blood cultures x2 are unremarkable. IMAGING DATA: Chest x-ray demonstrates extensive bibasilar changes consistent with lower lobe pneumonia. ASSESSMENT: 1. Acute hypoxic respiratory failure, resolved. 2. Community-acquired pneumonia, multifocal. 3. Urinary tract infection secondary to Proteus. 4. Dehydration, resolved. 5. Acute kidney injury, resolved. DISCUSSION AND PLAN: The patient is clearing his end-organ damage with these blood pressures. His mentation is fantastic. As such, I do believe that the patient lives at this level. IV fluids will be dropped to 50 mL/hour as he has improved toleration for p.o. Antibiotics will be continued for a total duration of 7 days. At this point, he remains stable for transition to the floor. When he arrives on the floor, we will simply follow intermittently. Job ID: [id number]
[2019-06-30] MEDS: Sodium Chloride 0.45% 1,000 ML IV SCH (17:08)
[2019-06-30] MEDS: Famotidine 20 MG TAB PO SCH (21:24)
[2019-06-30] MEDS: Tamsulosin HCl 0.4 MG CAP PO SCH (21:24)
[2019-06-30] MEDS: Finasteride 5 MG TAB PO SCH (21:24)
[2019-07-01] MEDS: traMADol HCl 50 MG TAB PO SCH ×4 (00:03→17:38)
[2019-07-01] MEDS: Piperacillin/Tazobactam 3.375 GM in Sodium Chloride 0.9% 100 ML IVPB SCH ×4 (00:03→17:38)
[2019-07-01] MEDS: Multivit, Therapeutic 1 TAB PO SCH (09:17)
[2019-07-01] MEDS: Lactinex Tablet PO SCH (09:17)
[2019-07-01] MEDS: Loratadine 10 MG TAB PO SCH (09:17)
[2019-07-01] MEDS: Docusate 100 MG CAP PO SCH (09:17)
[2019-07-01] MEDS: Polyethylene Glycol 3350 17 GM Packet PO SCH (09:19)
[2019-07-01] MEDS: valACYclovir 500 MG TAB PO SCH ×3 (10:08→20:40)
[2019-07-01] MEDS: Floranex Packet PO SCH (10:08)
[2019-07-01] MEDS: Sodium Chloride 0.45% 1,000 ML IV SCH (16:07)
[2019-07-01] MEDS: Famotidine 20 MG TAB PO SCH (20:40)
[2019-07-01] MEDS: Tamsulosin HCl 0.4 MG CAP PO SCH (20:40)
[2019-07-01] MEDS: Finasteride 5 MG TAB PO SCH (20:40)
[2019-07-02 04:41] LABS: #Basophils 0.1 thou/uL (0.0-0.2); #Eosinphils 0.2 thou/uL (0.0-0.7); #Lymphocytes 1.7 thou/uL (1.20-3.40); #Monocytes 0.5 thou/uL (0.11-0.59); #Neutrophils 2.9 thou/uL (1.40-6.50); %Basophils 1.3 % (0.0-1.0); %Eosinophils 4.3 % (0.0-10.0); %Lymphocytes 31.5 % (21.0-51.0); %Monocytes 9.7 % (0.0-10.0); %Neutrophils 53.2 % (42.0-75.0); Hemoglobin 9.2 g/dL (14.0-18.0); Mean Corpuscular HGB CONC 32.6 g/dL (32.0-36.0); Mean Corpuscular Hemoglobin 29.6 pg (27.0-31.0); Mean Corpuscular Volume 90.9 fL (78.0-98.0); Mean Platelet Volume 7.9 fL (7.4-10.4); Platelet Count 286 thou/uL (130-400); RBC Distribution Width 15.8 % (11.5-14.5); Red Blood Cell (RBC) Count 3.11 mill/uL (4.70-6.10); White Blood Cell (WBC) Count 5.4 thou/uL (4.8-10.8)
[2019-07-02 05:05] LABS: Anion Gap 10 mmol/L (10-20); BUN (Urea Nitrogen) 9 mg/dL (8.4-25.7); Calc. Creatinine Clearance 54 mL/min (70-130); Calcium 7.7 mg/dL (7.8-10.44); Carbon Dioxide 21 mmol/L (23-31); Chloride 114 mmol/L (98-107); Estimated GFR-MDRD 68; Glucose 80 mg/dL (80-115); Potassium 3.2 mmol/L (3.5-5.1); Sodium 142 mmol/L (136-145)
[2019-07-02] MEDS: Piperacillin/Tazobactam 3.375 GM in Sodium Chloride 0.9% 100 ML IVPB SCH ×5 (05:56→23:24)
[2019-07-02] MEDS: traMADol HCl 50 MG TAB PO SCH ×5 (05:56→23:23)
[2019-07-02] MEDS: Sodium Chloride 0.45% 1,000 ML IV SCH (08:49)
[2019-07-02] MEDS: Polyethylene Glycol 3350 17 GM Packet PO SCH (08:50)
[2019-07-02] MEDS: Docusate 100 MG CAP PO SCH (08:50)
[2019-07-02] MEDS: Multivit, Therapeutic 1 TAB PO SCH (08:50)
[2019-07-02] MEDS: Lactinex Tablet PO SCH (08:50)
[2019-07-02] MEDS: Loratadine 10 MG TAB PO SCH (08:50)
[2019-07-02] MEDS: Floranex Packet PO SCH (08:56)
--- NOTE | 2019-07-02 10:07 | PDOC.PALPN ---
Palliative Progress Note - Subjective Sleeping, arousable. Non verbal, moaned with assessment and went back to sleep state. ROS: unable to obtain secondary to patient limited cognitive capacity. - Objective Vital Signs: Vital Signs - Most Recent Temp Pulse Resp BP Pulse Ox 99.0 F 60 18 123/76 92 L 07/02/19 07:29 07/02/19 07:29 07/02/19 07:29 07/02/19 07:29 07/02/19 07:50 - Physical Exam Constitutional: NAD Deviation from normal: Sunken ocular bed, poor dentition. HEENT: moist MMs, sclera anicteric Respiratory: unlabored breathing Cardiovascular: RRR Gastrointestinal: soft, non-tender, positive bowel sounds Musculoskeletal: no edema, pulses present Deviation from normal: muscle atrophy Neurological: moves all 4 limbs Deviation from normal: Dry, flaky skin lower ext. Pallor - Assessment (1) Palliative care encounter Code(s): Z51.5 - ENCOUNTER FOR PALLIATIVE CARE Current Visit: Yes Status: Acute (2) Physical deconditioning Code(s): R53.81 - OTHER MALAISE Current Visit: Yes Status: Acute (3) Acute metabolic encephalopathy Code(s): G93.41 - METABOLIC ENCEPHALOPATHY Current Visit: No Status: Acute (4) Aspiration pneumonitis Code(s): J69.0 - PNEUMONITIS DUE TO INHALATION OF FOOD AND VOMIT Current Visit : No Status: Acute (5) Down syndrome Code(s): Q90.9 - DOWN SYNDROME, UNSPECIFIED Current Visit: No Status: Chronic (6) Swallowing dysfunction Code(s): R13.10 - DYSPHAGIA, UNSPECIFIED Current Visit: No Status: Chronic - Plan Plan: Lyla stevens return to [facility] in [place] met with niece who states she is MPOA with her Father, awaiting paper work. Had discussed Hospice on returning to [place]. Family states that they do not want him to have to keep returning to the Hospital. Hospice information presented an an option to manage symptoms related to decline and promote goals of care. Attempted to follow up with yevgeniy to discuss discharge and their goals of care. Awaiting to hear back from Niece. [40] minutes spent on this encounter with >50% of the time in counseling and coordination of care.
[2019-07-02] MEDS: valACYclovir 500 MG TAB PO SCH ×2 (10:25→16:22)
[2019-07-02] MEDS: Potassium Chloride 20 MEQ TAB PO SCH ×3 (11:25→20:22)
--- NOTE | 2019-07-02 12:27 | PQF ---
DATE: 07-02-19 ATTN: DR. LONA ESQUIVEL Please exercise your independent, professional judgment in responding to the clarification form. Clinical indicators are provided on the bottom of this form for your review Please check appropriate box(s) to clarify if the following diagnosis has been ruled in or ruled out: SEPSIS [ ] Ruled in diagnosis [ ] Continue to treat [ ] Resolved [ y] Ruled out diagnosis [ ] Other diagnosis [ ] Unable to determine In addition, please specify: Present on Admission (POA): [ y Yes [ ] No [ ] Unable to determine For continuity of documentation, please document condition throughout progress notes and discharge summary. Thank You. CLINICAL INDICATORS - SIGNS / SYMPTOMS / LABS / RESULTS AND LOCATION IN MR: ER DX 06-27-19: MULTIFOCAL PNEUMONIA, HYPOTENSION, HYPOXIA H&P : PNEUMONIA, BILATERAL BOTH LOWER LOBES, LEUKOCYTOSIS AND FEVER, RULE OUT SEPSIS, PAWAN, METABOLIC ENCEPHALOPATHY, SEVERE PROTEIN CALORIE MALNUTRITION WBC: 06-27-19: 16.6 06-28-19: 13.9 LACTIC ACID: 06-27-19: 3.1 06-27-19: 3.8 RISK FACTORS / RESULTS AND LOCATION IN MR: H&P 06-27-: PNEUMONIA, BILATERAL BOTH LOWER LOBES, LEUKOCYTOSIS AND FEVER , RULE OUT SEPSIS, PAWAN, METABOLIC ENCEPHALOPATHY, SEVERE PROTEIN CALORIE MALNUTRITION TREATMENTS / RESULTS AND LOCATION IN MR: ER NOTES 06-27-19: NS IVF, VANCOMYCIN IV, ZOSYN IV (This form is maintained as a part of the permanent medical record) 2014 [employer]. All Rights Reserved JOSE [email or web address] Office: [phone] [facility] HOSPITALAmanuel
[2019-07-02 15:09] VITALS: BMI 23.8
[2019-07-02] MEDS: Tamsulosin HCl 0.4 MG CAP PO SCH (20:22)
[2019-07-02] MEDS: Famotidine 20 MG TAB PO SCH (20:22)
[2019-07-02] MEDS: Finasteride 5 MG TAB PO SCH (20:22)
[2019-07-03] MEDS: Sodium Chloride 0.45% 1,000 ML IV SCH ×2 (03:52→17:23)
[2019-07-03] MEDS: traMADol HCl 50 MG TAB PO SCH ×3 (05:40→17:20)
[2019-07-03] MEDS: Piperacillin/Tazobactam 3.375 GM in Sodium Chloride 0.9% 100 ML IVPB SCH ×3 (05:40→17:20)
[2019-07-03 06:15] LABS: Anion Gap 10 mmol/L (10-20); BUN (Urea Nitrogen) 8 mg/dL (8.4-25.7); Calc. Creatinine Clearance 52 mL/min (70-130); Calcium 7.8 mg/dL (7.8-10.44); Carbon Dioxide 24 mmol/L (23-31); Chloride 112 mmol/L (98-107); Estimated GFR-MDRD 66; Glucose 84 mg/dL (80-115); Potassium 3.7 mmol/L (3.5-5.1); Sodium 142 mmol/L (136-145)
[2019-07-03] MEDS: Loratadine 10 MG TAB PO SCH (09:32)
[2019-07-03] MEDS: Lactinex Tablet PO SCH (09:32)
[2019-07-03] MEDS: Docusate 100 MG CAP PO SCH (09:33)
[2019-07-03] MEDS: Multivit, Therapeutic 1 TAB PO SCH (09:33)
[2019-07-03] MEDS: Polyethylene Glycol 3350 17 GM Packet PO SCH (09:34)
[2019-07-03] MEDS: Floranex Packet PO SCH (11:39)
[2019-07-03] MEDS: Finasteride 5 MG TAB PO SCH (21:08)
[2019-07-03] MEDS: Tamsulosin HCl 0.4 MG CAP PO SCH (21:08)
[2019-07-03] MEDS: Famotidine 20 MG TAB PO SCH (21:08)
[2019-07-04] MEDS: Piperacillin/Tazobactam 3.375 GM in Sodium Chloride 0.9% 100 ML IVPB SCH ×3 (00:52→11:24)
[2019-07-04] MEDS: traMADol HCl 50 MG TAB PO SCH ×3 (00:53→11:25)
[2019-07-04] MEDS: Loratadine 10 MG TAB PO SCH (09:12)
[2019-07-04] MEDS: Lactinex Tablet PO SCH (09:13)
[2019-07-04] MEDS: Floranex Packet PO SCH (09:13)
[2019-07-04] MEDS: Docusate 100 MG CAP PO SCH (09:13)
[2019-07-04] MEDS: Polyethylene Glycol 3350 17 GM Packet PO SCH (09:13)
[2019-07-04] MEDS: Multivit, Therapeutic 1 TAB PO SCH (09:13)
[2019-07-04 12:58] VITALS: BP 121/79; TEMP 99
== END 2019-07-04 13:55 | DRG 177 ==
LOC: ERS 11:23 → IMCU/EMU 12:35 → T4-A 06-30 14:49
PROVIDERS: ADMIT Internal Medicine; ATTEND Internal Medicine
DX: J69.0 Pneumonitis due to inhalation of food and vomit (principal); G93.41 Metabolic encephalopathy; J96.01 Acute respiratory failure with hypoxia; E43 Unspecified severe protein-calorie malnutrition; Z66 Do not resuscitate; Z51.5 Encounter for palliative care; N39.0 Urinary tract infection, site not specified; N17.9 Acute kidney failure, unspecified; Q90.9 Down syndrome, unspecified; Z74.01 Bed confinement status; B96.4 Proteus (mirabilis) (morganii) as the cause of diseases classified elsewhere; E86.0 Dehydration; R13.10 Dysphagia, unspecified; N40.1 Benign prostatic hyperplasia with lower urinary tract symptoms; R33.8 Other retention of urine; B02.9 Zoster without complications; D64.9 Anemia, unspecified; Z68.23 Body mass index [BMI] 23.0-23.9, adult; Z79.899 Other long term (current) drug therapy
CPT/HCPCS: 36415; 36416; 71045; 80048; 80053; 81003; 81015; 82550; 83605; 85025; 87040; 87077; 87086; 87186; 93005; 96361; 96365; J1265; J2543; J3370; J3490

== ENCOUNTER 2019-07-09 08:59 | Inpatient (IN) | payer MEDICARE, MEDICAID ==
--- NOTE | 2019-07-09 09:19 | RAD ---
XR Chest 1 View Portable HISTORY: Dyspnea COMPARISON: 06/27/2019 FINDINGS: The heart size is normal. There is pulmonary vascular congestion with bibasilar alveolar ch anges and accompanying pleural effusions. No pneumothoraces are seen.
[2019-07-09 09:30] LABS: Bilirubin Negative (Negative); Blood, Urine Negative (Negative); Calcium Oxalate Crystals 3+ HPF (None Seen); Clarity Clear (Clear); Glucose, Urine (Dipstick) Normal (Negative); Leukocyte Negative Leu/uL (Negative); Nitrite Negative (Negative); Protein, Urine (Dipstick) 30 mg/dL (Neg-Trace); RBC/HPF 0-3 HPF (0-3); Squamous Epithelial None Seen HPF (0-3)
[2019-07-09 09:31] LABS: Bacteria/HPF 1+ HPF (None Seen)
[2019-07-09 09:34] LABS: #Lymphocytes 3.1 thou/uL (1.20-3.40); #Monocytes 0.7 thou/uL (0.11-0.59); %Basophils 0.2 % (0.0-1.0); %Eosinophils 0.3 % (0.0-10.0); %Lymphocytes 22.3 % (21.0-51.0); %Monocytes 5.3 % (0.0-10.0); %Neutrophils 71.8 % (42.0-75.0); Hemoglobin 9.7 g/dL (14.0-18.0); Mean Corpuscular HGB CONC 31.3 g/dL (32.0-36.0); Mean Corpuscular Hemoglobin 28.8 pg (27.0-31.0); Mean Corpuscular Volume 92.2 fL (78.0-98.0); Platelet Count 318 thou/uL (130-400); RBC Distribution Width 16.4 % (11.5-14.5); Red Blood Cell (RBC) Count 3.36 mill/uL (4.70-6.10); White Blood Cell (WBC) Count 13.9 thou/uL (4.8-10.8)
[2019-07-09 10:02] LABS: ALT (SGPT) Less than 7 U/L (8-55); AST (SGOT) 15 U/L (5-34); Albumin 2.3 g/dL (3.4-4.8); Alkaline Phosphatase 56 U/L (40-110); Anion Gap 12 mmol/L (10-20); BUN (Urea Nitrogen) 17 mg/dL (8.4-25.7); Bilirubin, Total 0.4 mg/dL (0.2-1.2); Calc. Creatinine Clearance 0 mL/min (70-130); Calcium 7.9 mg/dL (7.8-10.44); Carbon Dioxide 24 mmol/L (23-31); Chloride 112 mmol/L (98-107); Estimated GFR-MDRD 46; Globulin 3.4 g/dL (2.4-3.5); Glucose 110 mg/dL (80-115); Potassium 3.9 mmol/L (3.5-5.1); Protein, Total 5.7 g/dL (5.8-8.1); Sodium 144 mmol/L (136-145)
[2019-07-09] MEDS ORDERED: Morphine 2 MG/ML SYRINGE ONE (11:19)
--- NOTE | 2019-07-09 13:19 | PDOC.FPRHP ---
- History of Present Illness Chief Complaint: AMS History of Present Illness: Pt is 68-yo male w/ trisomy 21 who presented to ED by family from snf ( [facility]). Pt is altered and niece/brother are MPOA. Niece provided the history. Pt has had multiple hospitalizations since April starting with a bleeding ulcer, followed by a couple of hospitalizations for aspiration PNA twice. Niece was planning on seeking hospice today but pt started having respiratory distress this morning and requiring oxygen. Niece reports pt has not had normal mental status, has not eaten in 4 days, and has barely taken sips of water as well. Pt has been made DNR for inpatient hospice. - Allergies/Adverse Reactions Allergies Allergy/AdvReac Type Severity Reaction Status Date / Time No Known Allergies Allergy Verified 06/17/19 02:32 - Home Medications Medication Instructions Recorded Confirmed Type Cetirizine HCl [Zyrtec] 10 mg PO DAILY 02/09/18 07/09/19 History Multivitamin [Multivitamins] 1 cap PO DAILY 02/09/18 07/09/19 History QUEtiapine Fumarate [SEROquel] 100 mg PO HS 02/09/18 07/09/19 History Finasteride [Proscar] 5 mg PO HS #30 tab 02/13/18 07/09/19 Rx Polyethylene Glycol 3350 [Miralax] 17 gm PO DAILY pk 02/13/18 07/09/19 Rx Tamsulosin HCl [Flomax] 0.4 mg PO HS #30 cap 02/13/18 07/09/19 Rx Docusate Sodium 100 mg PO DAILY 05/19/19 07/09/19 History Famotidine [Pepcid] 20 mg PO BID 06/17/19 07/09/19 History L. Acidophilus/L.bulgaricus 1 each PO DAILY 06/17/19 07/09/19 History [Floranex Tablet] Bisacodyl [Dulcolax] 10 mg NC DAILY PRN 06/21/19 07/09/19 History Calcium Carbonate [Tums] 1,000 mg PO Q4HR PRN 06/21/19 07/09/19 History Ondansetron [Zofran ODT] 4 mg PO Q6HR PRN 06/21/19 07/09/19 History Acetaminophen [Non-Aspirin] 325 mg PO Q4HR PRN 06/27/19 07/09/19 History Aluminum & Magnesium Hydroxide 20 mg PO PRN PRN 06/27/19 07/09/19 History [Maalox] guaiFENesin [Guaifenesin] 100 mg PO Q4HR PRN 06/27/19 07/09/19 History traMADol HCl [Tramadol HCl] 50 mg PO Q6HR 06/27/19 07/09/19 History Acetaminophen [Tylenol] 650 mg NC Q4HR PRN 07/04/19 07/09/19 History Amoxicillin/Potassium Clav 875 mg PO Q12HR 07/04/19 07/09/19 History [Augmentin] Calamine/Zinc Oxide [Gs Calamine 1 applic TOP PRN PRN 07/04/19 07/09/19 History Lotion] Nitrofurantoin Monohyd/M-Cryst 50 mg PO DAILY 07/04/19 07/09/19 History [Macrobid] Potassium Chloride [Klor-Con 10] 10 meq PO DAILY 07/04/19 07/09/19 History - History PMHx: Down syndrome, aspiration PNA, GERD, BPH w/ obstructive congenital left ureter, chronic indwelling tong. PSHx: not assessed FHx: not assessed Social: not assessed - Review of Systems ROS unobtainable: due to mental status - Vital signs BP: 95/51 HR: 81 RR: 20 Tmax: 98.5 Pox: 95% on 2 L O2 NC Wt: 54 kg - Physical Exam Constitutional: NAD HEENT: normocephalic and atraumatic, PERRLA, no scleral icterus Neck: supple, trachea midline, no thyromegaly Heart: RRR, normal S1/S2 Lungs: other (diffuse wheezing and increased work of breathing) Abdomen: soft, non-tender Skin: no rash/lesions FMR H&P: Results - Labs Result Diagrams: 07/09/19 09:09 07/09/19 09:09 Lab results: WBC 13.9 thou/uL (4.8-10.8) H 07/09/19 09:09 Hgb 9.7 g/dL (14.0-18.0) L 07/09/19 09:09 Hct 31.0 % (42.0-52.0) L 07/09/19 09:09 MCV 92.2 fL (78.0-98.0) 07/09/19 09:09 Plt Count 318 thou/uL (130-400) 07/09/19 09:09 Neutrophils % 71.8 % (42.0-75.0) 07/09/19 09:09 Sodium 144 mmol/L (136-145) 07/09/19 09:09 Potassium 3.9 mmol/L (3.5-5.1) 07/09/19 09:09 Chloride 112 mmol/L (98-107) H 07/09/19 09:09 Carbon Dioxide 24 mmol/L (23-31) 07/09/19 09:09 BUN 17 mg/dL (8.4-25.7) 07/09/19 09:09 Creatinine 1.52 mg/dL (0.7-1.3) H 07/09/19 09:09 Glucose 110 mg/dL (80-115) 07/09/19 09:09 Lactic Acid 1.4 mmol/L (0.5-2.2) 07/09/19 09:09 Calcium 7.9 mg/dL (7.8-10.44) 07/09/19 09:09 Total Bilirubin 0.4 mg/dL (0.2-1.2) 07/09/19 09:09 AST 15 U/L (5-34) 07/09/19 09:09 ALT Less than 7 U/L (8-55) L 07/09/19 09:09 Alkaline Phosphatase 56 U/L (40-110) 07/09/19 09:09 Serum Total Protein 5.7 g/dL (5.8-8.1) L 07/09/19 09:09 Albumin 2.3 g/dL (3.4-4.8) L 07/09/19 09:09 Urine Ketones Negative mg/dL (Negative) 07/09/19 09:10 Urine Blood Negative (Negative) 07/09/19 09:10 Urine Nitrite Negative (Negative) 07/09/19 09:10 Ur Leukocyte Esterase Negative Lucila/uL (Negative) 07/09/19 09:10 Urine RBC 0-3 HPF (0-3) 07/09/19 09:10 Urine WBC 4-6 HPF (0-3) A 07/09/19 09:10 Ur Squamous Epith Cells None Seen HPF (0-3) 07/09/19 09:10 Urine Bacteria 1+ HPF (None Seen) A 07/09/19 09:10 FMR H&P: A/P - Problem List (1) Acute metabolic encephalopathy Current Visit: No Status: Acute Code(s): G93.41 - METABOLIC ENCEPHALOPATHY (2) Aspiration pneumonitis Current Visit: No Status: Acute Code(s): J69.0 - PNEUMONITIS DUE TO INHALATION OF FOOD AND VOMIT (3) Dehydration Current Visit: No Status: Acute Code(s): E86.0 - DEHYDRATION (4) Urinary retention Current Visit: No Status: Acute Code(s): R33.9 - RETENTION OF URINE, UNSPECIFIED Comment: s/p tong (5) BPH (benign prostatic hyperplasia) Current Visit: No Status: Chronic Code(s): N40.0 - BENIGN PROSTATIC HYPERPLASIA WITHOUT LOWER URINRY TRACT SYMP (6) Down syndrome Current Visit: No Status: Chronic Code(s): Q90.9 - DOWN SYNDROME, UNSPECIFIED (7) Swallowing dysfunction Current Visit: No Status: Chronic Code(s): R13.10 - DYSPHAGIA, UNSPECIFIED (8) Septic shock Current Visit: Yes Status: Acute Code(s): A41.9 - SEPSIS, UNSPECIFIED ORGANISM; R65.21 - SEVERE SEPSIS WITH SEPTIC SHOCK - Plan 68 yo male w/ trisomy 21 admitted to inpatient hospice for: 1. Septic shock likely 2/2 aspiration PNA 2. Trisomy 21 3. Chronic indwelling tong 2/2 urinary retention 4. Acute infectious encephalopathy plan: hospice care measures for pain, comfort. See orders by Dr. Liang which include standard hospice standing orders. Code: DNR Disposition/LOS: Admit to inpatient hospice (oncology floor) for [facility]. FMR H&P: Upper Level - Pertinent history 68 yo male with Downs syndrome transferred from [facility] to ER with history recent poor po intake, cough, fever and marked hypotension. Patient was hospitalized recently with aspiration pneumonia and dehydration. The patient was administered epinephrine en route to ER by EMS, initial VS at [facility] ER T 100.9 BP 84/53 RR 22 and oxygen saturation 87% on RA. Patient hypotensive and minimally responsive on evaluation. - Pertinent findings General: Minimally responsive HEENT: Dry MM Card: RRR Resp: Coarse breath sounds throughout - Plan Date/Time: 07/09/19 1318 I, Teodora Flynn, have evaluated this patient and agree with findings/plan as outlined by undergraduate internship resident. Pertinent changes/additions are listed here. Septic shock 2/2 aspiration pneumonia - Given epinephrine en route - Discussion with our attending and mPOA; decision made to proceed with hospice - Admitted to [facility] under residents for inpatient services Trisomy 21 Chronic indwelling tong 2/2 urinary retention Dispo: Admit to inpatient hospice for comfort care. Addendum - Attending - Attending Attestation Date/Time: 07/09/19 6216 I personally evaluated the patient and discussed the management with Dr. Flynn I agree with the History, Examination, Assessment and Plan documented above with any addition or exceptions noted below. Consulted By [facility] for a Hospice Inpatient evaluation. 68 yo male with Downs syndrome transferred from [facility] to ER with history recent poor po intake, cough, fever and marked hypotension. Patient was hospitalized recently with aspiration pneumonia and dehydration. The patient was administered epinephrine enroute to ER by EMS, initial VS at [facility] ER T 100.9 BP 84/53 RR 22 and oxygen saturation 87 % on RA. Patient hypotensive minimal responsive appears dehydrated Lungs with course lung sounds. PMHX: Patient unable to give Medical History reviewed prior records and discussed with patients Niece and MPOA. 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 surgery as ), prior hospitalization with concern for Normal Pressure Hydrocepahuls with noted cerebral atrophy on CT Dr Thompson Neurologist evaluated patient and felt he didn' t meet clinical parameters of NPH and no further evaluation was deemed necessary. Note at recent hospitalization patient seen and evaluated for hospice and no code status re-affirmed. Discussed with MPOA Mili Lee who is requesting Hospice care offered transport to [facility] however family prefer admitting here for now. Patient appears to be actively dying from presumed sepsis related to PNA labored respiration marked secretions and restlessness noted. Patient is appropriate for hospice and at present do not expect survival beyond next 48 hours.
[2019-07-09] MEDS ORDERED: chlorproMAZINE HCl 25 MG in Sodium Chloride 0.9% 50 ML IVPB PRN (14:06)
[2019-07-09] MEDS ORDERED: Scopolamine 1.5 mg/72 hour Patch TOP PRN ×2 (14:06)
[2019-07-09] MEDS ORDERED: Promethazine HCl 25 MG SUPP PR PRN (14:06)
[2019-07-09] MEDS ORDERED: Lorazepam 2 MG/ML VIAL SLOW IVP PRN (14:06)
[2019-07-09] MEDS ORDERED: Ondansetron ODT 4 MG TAB PO PRN (14:06)
[2019-07-09] MEDS ORDERED: Acetaminophen 650 MG Suppository PR PRN (14:06)
[2019-07-09] MEDS ORDERED: chlorproMAZINE HCl 50 MG/2 ML AMP IM PRN ×2 (14:06)
[2019-07-09] MEDS ORDERED: Acetaminophen 325 MG TAB PO PRN (14:06)
[2019-07-09] MEDS ORDERED: Milk Of Magnesia 30 ML UDCUP PO PRN (14:06)
[2019-07-09] MEDS ORDERED: diphenhydrAMINE 50 MG/ML VIAL IVP PRN (14:06)
[2019-07-09] MEDS ORDERED: Hyoscyamine Sulfate SL 0.125 mg Tablet SL PRN (14:06)
[2019-07-09] MEDS ORDERED: diphenhydrAMINE 25 MG CAP PO PRN (14:06)
[2019-07-09] MEDS ORDERED: Haloperidol Lactate 5 MG/ML VIAL SLOW IVP PRN (14:06)
[2019-07-09] MEDS ORDERED: Zolpidem Tartrate 5 MG TAB PO PRN (14:06)
[2019-07-09] MEDS ORDERED: Morphine IR Tab 15 MG TAB PO PRN (14:06)
[2019-07-09] MEDS ORDERED: Loperamide HCl 2 MG CAP PO PRN (14:06)
[2019-07-09] MEDS ORDERED: Lorazepam 1 MG TAB PO PRN ×2 (14:06)
[2019-07-09] MEDS ORDERED: Ondansetron PF 4 MG/2 ML Vial IVP PRN (14:06)
[2019-07-09] MEDS ORDERED: Ibuprofen 200 MG TAB PO PRN (14:16)
[2019-07-09] MEDS ORDERED: Morphine 10 MG/0.5 ML ORAL SYRINGE SL PRN (14:17)
[2019-07-09] MEDS ORDERED: Morphine 2 MG/ML SYRINGE SLOW IVP PRN (14:18)
[2019-07-09] MEDS: Lorazepam 2 MG/ML VIAL SLOW IVP PRN (14:31)
[2019-07-09 15:18] VITALS: BMI 25.2
--- NOTE | 2019-07-10 06:55 | PDOC.FM ---
- Subjective Subjective: NAEO. Rubalcava. present in room, says patient is and was comfortable. No further concerns at this point. Would like to continue hospice care. - Objective MAR Reviewed: Yes Vital Signs & Weight: Vital Signs (12 hours) Temp Pulse Resp BP Pulse Ox 07/09/19 20:13 89 L 07/09/19 19:37 98.5 F 82 16 99/65 89 L Weight Weight 54.749 kg I&O: 07/08/19 07/09/19 07/10/19 06:59 06:59 06:59 Intake Total 160 Output Total 600 Balance -440 Result Diagrams: 07/09/19 09:09 07/09/19 09:09 Phys Exam - Physical Examination Constitutional: NAD down's syndrome. HEENT: PERRLA, moist MMs Neck: no nodes crackles Cardiovascular: RRR, no significant murmur Gastrointestinal: soft, non-tender Musculoskeletal: no edema unable to assess due to patient resting Dx/Plan (1) Septic shock Code(s): A41.9 - SEPSIS, UNSPECIFIED ORGANISM; R65.21 - SEVERE SEPSIS WITH SEPTIC SHOCK Status: Acute (2) Aspiration pneumonitis Code(s): J69.0 - PNEUMONITIS DUE TO INHALATION OF FOOD AND VOMIT Status: Acute (3) Dehydration Code(s): E86.0 - DEHYDRATION Status: Acute (4) Gastric ulcer Code(s): K25.9 - GASTRIC ULCER, UNSP ACUTE OR CHRONIC, W/O HEMOR OR PERF Status: Acute (5) Palliative care encounter Code(s): Z51.5 - ENCOUNTER FOR PALLIATIVE CARE Status: Acute (6) Down syndrome Code(s): Q90.9 - DOWN SYNDROME, UNSPECIFIED Status: Chronic (7) NPH (normal pressure hydrocephalus) Code(s): G91.2 - (IDIOPATHIC) NORMAL PRESSURE HYDROCEPHALUS Status: Chronic (8) Swallowing dysfunction Code(s): R13.10 - DYSPHAGIA, UNSPECIFIED Status: Chronic - Plan Plan: 1. Sepsis 2/2 aspiration PNA- continue nasal cannula for comfort 2. Inpatient [id number] care medication for agitated, fever reduction on board 3. Down's syndrome 4. Swallowing dysfunction/aspiration risk 5. BPH with obstructive congenital left ureter-continue chronic indwelling tong Dispo: Patient stable. After discussion with neice will work on transferring to inpatient hospice facility. Niece is medical field, understands situation and poor prognosis. Continue palliative comfort care. Addendum - Attending - Attending Attestation Date/Time: 07/10/19 7938 I personally evaluated the patient and discussed the management with Dr. Grande I agree with the History, Examination, Assessment and Plan documented above with any addition or exceptions noted below. Plan transfer to [facility] today family aware.
[2019-07-10 07:32] VITALS: BP 85/54; TEMP 99.9
[2019-07-10] MEDS: Lorazepam 2 MG/ML VIAL SLOW IVP PRN (10:52)
--- NOTE | 2019-07-11 12:40 | DIS ---
DATE OF ADMISSION: 07/09/2019 DATE OF DISCHARGE: 07/10/2019 RESIDENT: Alma Grande, PGY-2. CONSULT: Palliative Care. PRIMARY DIAGNOSES: 1. Sepsis secondary to aspiration pneumonia. 2. Inpatient hospice. 3. Down syndrome. 4. Swallowing dysfunction/aspiration. 5. Benign prostatic hypertrophy with obstructive congenital left ureter with placement of chronic indwelling Reyes. PROCEDURES AND IMAGING: Chest x-ray, heart, pulmonary vascular congestion, bibasilar alveolar changes and accompanying pleural effusions. Normal heart size. No pneumothoraces. DISCHARGE MEDICATIONS: 1. Cetirizine 10 mg p.o. daily. 2. Multivitamin. 3. Seroquel 100 mg p.o. at bedtime. 4. Finasteride 5 mg p.o. at bedtime. 5. MiraLAX 17 g p.o. daily. 6. Flomax 0.4 mg p.o. at bedtime. 7. Docusate 100 mg p.o. daily. 8. Pepcid 20 mg p.o. b.i.d. 9. Floranex. 10. Zofran 4 mg p.o. q.6 hours p.r.n. for nausea. 11. Tums. 12. Dulcolax. 13. Tramadol 50 mg p.o. q.6 hours. 14. Guaifenesin. 15. Maalox. 16. Acetaminophen. 17. Potassium chloride. 18. Macrobid 50 mg p.o. daily. 19. Augmentin 875 mg p.o. q.12 hours. HISTORY OF PRESENT ILLNESS/HOSPITAL COURSE: Mr. Melara is a 68-year-old male with Down syndrome, who presented to the ER with his family from the [facility] due to respiratory distress this morning. He has had an unfortunate complex medical history with recent multiple hospitalizations for bleeding ulcer and aspiration pneumonia, all this past year and has been declining since then per his niece. His current status is DNR. He had altered mental status, having 4 days, which is what brought him into the hospital. He was in septic shock, likely secondary to aspiration pneumonia and was started on antibiotics. The patient remained about baseline, but did improve from his vitals and lab point of view. The niece was electing to have inpatient hospice and so a setup was processed by Hospice and was transitioned to this facility to comfortable stay. The question of having the patient probably will not make it beyond the year. All questions were answered. DISPOSITION: Stable. DISCHARGE INSTRUCTIONS: 1. Location: Inpatient hospice. 2. Diet: Regular diet as tolerated. 3. Activity: Ad nathan as tolerated. 4. Followup: Please follow up with hospice care. 5. The patient will be discharged to Hospice and will follow up with PCP. Job ID: [id number]
== END 2019-07-10 13:30 | disposition hospice, inpatient (51) | DRG 871 ==
LOC: ERS 08:59 → ONC 13:25
PROVIDERS: ADMIT Family Medicine; ATTEND Family Medicine
DX: A41.9 Sepsis, unspecified organism (principal); R65.21 Severe sepsis with septic shock; J69.0 Pneumonitis due to inhalation of food and vomit; G93.41 Metabolic encephalopathy; G91.2 (Idiopathic) normal pressure hydrocephalus; Z66 Do not resuscitate; Z51.5 Encounter for palliative care; Q90.9 Down syndrome, unspecified; E86.0 Dehydration; N40.0 Benign prostatic hyperplasia without lower urinary tract symptoms; K25.9 Gastric ulcer, unspecified as acute or chronic, without hemorrhage or perforation; R13.10 Dysphagia, unspecified; K21.9 Gastro-esophageal reflux disease without esophagitis
CPT/HCPCS: 71045; 80053; 81003; 81015; 83605; 85025; 87040; 87086; 93005; 94760; 96361; 96374; 99292; J2060; J2270